=== PATIENT | female | born 1940 | race Caucasian/White ===

== ENCOUNTER 2016-11-02 14:05 | Inpatient (IN) ==
[2016-11-02] MEDS ORDERED: NS 1,000 ML IV PRN (14:39)
[2016-11-02] MEDS ORDERED: NS 500 ML IV ONE (14:40)
[2016-11-02] MEDS ORDERED: HEPARIN ONE (15:22)
--- NOTE | 2016-11-02 15:27 | PROVIDER DOCUMENTATION ---
HPI-Abdominal Pain/GI Problem - General Chief Complaint: GI Bleed Stated Complaint: GI BLEED Time Seen by Provider: 11/02/16 14:31 Source: patient, family Allergies/Adverse Reactions: Patient Allergies Allergy/AdvReac Type Severity Reaction Status Date / Time codeine Allergy Unknown Verified 11/02/16 15:15 meperidine HCl * Allergy VOMITING Verified 11/02/16 15:15 [From Demerol] Penicillins Allergy Unknown Verified 11/02/16 15:15 Home Medications: Home Medication List Medication Instructions Recorded Confirmed Last Taken Type Clonazepam 0.5 tab PO BID 04/17/15 10/27/16 10/27/16 09:00 History Digoxin [Digox] 125 mcg PO DAILY 04/17/15 10/27/16 10/27/16 09:00 History Dorzolamide HCl/Timolol Maleat 1 drop BOTH EYES BID 04/17/15 10/27/16 10/27/16 09:00 History [Cosopt Eye Drops] Paroxetine HCl 10 mg PO BID 04/17/15 10/27/16 10/27/16 09:00 History Propranolol HCl [Propranolol HCl 160 mg PO HS 04/17/15 10/27/16 10/26/16 21:00 History ER] Bimatoprost 0.01% Oph Solution 1 drop BOTH EYES HS #0 bottle 06/25/16 10/27/16 10/26/16 21:00 Rx [Lumigan 0.01% Oph Solution] Ondansetron [Zofran Odt] 4 mg PO Q6H PRN PRN #20 tab.rapdis 07/09/16 10/27/16 16:00 Rx Acetaminophen [Tylenol] 650 mg PO Q6H PRN PRN #0 tablet 08/20/16 10/27/16 Unknown Rx Dronabinol [Marinol] 2.5 mg PO HS #0 capsule 08/20/16 10/27/16 10/26/16 21:00 Rx Methocarbamol [Robaxin] 500 mg PO TID PRN PRN #0 tablet 08/20/16 10/27/16 Unknown Rx Sennosides [Senokot] 1 each PO DAILY PRN PRN 10/27/16 10/27/16 Unknown History - History of Present Illness-ABD Nature of Presenting Problems: patient is a 76 y/o F that presents to the ER with weakness, vomiting and diarrhea, and bleeding from rectum, nasal area, and mouth. Patient has has the vomiting and diarrhea for weeks. patient is on chemo for pancreatic cancer with spots to liver. She was sent here from 's office for admission and GI consult. Quality of Pain: reports: none Severity in ED: reports: moderate Onset/Duration: reports: unsure Timing: reports: still present, constant Activities at Onset: reports: none Modifying Factors: improves with: nothing Associated Symptoms: reports: diarrhea, fatigue, malaise, vomiting, weakness. denies: back/neck pain, chest pain, fever/chills, genitourinary problems, nausea , rash Similar Symptoms Previously?: No Recently seen or treated by another doctor?: Yes Review of Systems - Adult - REVIEW OF SYSTEMS - ADULT Constitutional: reports: fatique. denies: chills, fever Eyes: denies: blurred vision, double vision Ears, Nose, Mouth & Throat: denies: ear pain, hearing loss, sinus problem, throat pain, throat swelling Cardiovascular: denies: chest pain, palpitations, syncope Respiratory: denies: cough, dyspnea on exertion, shortness of breath, wheezing Gastrointestinal: reports: diarrhea, nausea, rectal bleeding, vomiting. denies : abdominal pain, hematemesis Genitourinary: reports: no symptoms reported Musculoskeletal: reports: muscle weakness. denies: back pain, joint pain, neck pain Integumentary: reports: no symptoms reported Neurological: denies: dizziness/vertigo, headache/migraines, seizure Psychiatric: reports: no symptoms reported Endocrine: reports: no symptoms reported Hematologic/Lymphatic: reports: no symptoms reported Allergic/Immunologic: reports: no symptoms reported All Other Systems: Reviewed and Negative Past History - Adult - PAST MEDICAL HISTORY-ADULT Review of Records: reports: Old Records Reviewed, Nursing Assessment Review, Medications Reviewed Cardiovascular: reports: A-Fib, HTN Gastrointestinal: reports: cancer (pancreatic) Genitourinary: reports: other (one kidney) Endocrine/Immune: reports: Diabetes - PRIOR SURGERIES/PROCEDURES Surgical/Procedure History: reports: hysterectomy, orthopedic (extremity), other (one kidney) - IMMUNIZATION STATUS Childhood Immunizations: See Nurse Assessment Flu Vaccine: See Nurse Assessment - FAMILY HISTORY Family History: reviewed, not pertinent - SOCIAL HISTORY Living Situation: family Physical Exam-General - PHYSICAL EXAM-ADULT Initial Vital Signs Reviewed: Yes - CONSTITUTIONAL General Appearance: alert, mild distress, other (ill appearing) - EYES Eyes: PERRL/EOMI, pink conjunctivae - HEAD, EARS, NOSE, MOUTH & THROAT HENMT: normocephalic/atraumatic, moist mucous membranes, normal ENT inspection - NECK Neck: full range of motion, normal inspection. negative: lymphadenopathy - RESPIRATORY Respiratory: no respiratory distress, no accessory muscle use, decreased breath sounds (at right base) - CARDIOVASCULAR Cardiovascular: regular rate, rhythm, no edema, no murmur - GASTROINTESTINAL (ABDOMEN) Abdominal Exam: normal bowel sounds, non tender, soft - MUSCULOSKELETAL Extremity: pelvis stable, pedal edema (trace) - SKIN Integumentary: pallor, other (port noted in upper chest). negative: cyanosis - NEUROLOGIC Neurologic: grossly normal, no motor/sensory deficits - PSYCHIATRIC Psych/Mental Status: normal mood/affect, normal thought content, normal thought process, oriented x 3 Progress - PLAN OF CARE/RESULTS Progress/Plan/Lab Results: plan of care-labs, cxr, type and screen Vital Signs Temp Pulse Resp BP Pulse Ox 11/02/16 14:23 98.4 F 65 16 99/43 100 codeine Allergy (Verified 11/02/16 15:15) Unknown meperidine HCl * [From Demerol] Allergy (Verified 11/02/16 15:15) VOMITING Penicillins Allergy (Verified 11/02/16 15:15) Unknown Clonazepam 0.5 tab PO BID 04/17/15 Digoxin [Digox] 125 mcg PO DAILY 04/17/15 Dorzolamide HCl/Timolol Maleat [Cosopt Eye Drops] 1 drop BOTH EYES BID 04/17/15 Paroxetine HCl 10 mg PO BID 04/17/15 Propranolol HCl [Propranolol HCl ER] 160 mg PO HS 04/17/15 Bimatoprost 0.01% Oph Solution [Lumigan 0.01% Oph Solution] 1 drop BOTH EYES HS #0 bottle 06/25/16 Ondansetron [Zofran Odt] 4 mg PO Q6H PRN PRN #20 tab.rapdis 07/09/16 Acetaminophen [Tylenol] 650 mg PO Q6H PRN PRN #0 tablet 08/20/16 Dronabinol [Marinol] 2.5 mg PO HS #0 capsule 08/20/16 Methocarbamol [Robaxin] 500 mg PO TID PRN PRN #0 tablet 08/20/16 Sennosides [Senokot] 1 each PO DAILY PRN PRN 10/27/16 Orders Category Date Time Status Isolation [Isolation Precautions Setup] NOW Care 11/02/16 14:39 Active Saline Loc DIRECTED Care 11/02/16 14:39 Active Transfuse .Give-Transfuse Care 11/02/16 14:40 Active cxr [CHEST-1 VIEW] [RAD] Stat Exams 11/02/16 14:44 Draft CBC WITH ELECTRONIC DIFF [HEME] Stat Lab 11/02/16 15:43 Ordered COMPREHENSIVE METABOLIC PANEL [CHEM] Stat Lab 11/02/16 15:43 Ordered OCCULT BLOOD NON-FECES Stat Lab 11/02/16 14:39 Uncollected OCCULT BLOOD SCREENING [STOOL] Stat Lab 11/02/16 14:39 Uncollected PHERESIS PLATELETS [BBK] Stat Lab 11/02/16 15:43 Ordered PRBC [LRPC (RED CELLS)] [BBK] Stat Lab 11/02/16 15:43 Ordered PROTIME WITH INR [COAG] Stat Lab 11/02/16 15:43 Ordered PTT [COAG] Stat Lab 11/02/16 15:43 Ordered TYPE & SCREEN [BBK] Stat Lab 11/02/16 15:43 Ordered 0.9% Sodium Chloride Inj [Ns] 1,000 ml Med 11/02/16 14:39 Active IV 125 mls/hr 0.9% Sodium Chloride Inj [Ns] 500 ml Med 11/02/16 14:40 Discontinued IV As Directed Heparin Med 11/02/16 15:22 Discontinued 500 unit .ROUTE .STK-MED ONE - XRAY 1 XRAY Study: Chest Impression: Normal XRAY Interpretation: Negative - CONSULTS/PCP/HOSPITALIST Notification #1 *Consult/PCP/Hospitalist*: Dr.Scott Hobson Time Discussed: 15:49 Consult Disposition: Admit Departure - Departure Time of Disposition Order: 15:45 DIAGNOSIS: Thrombocytopenia Anemia Qualifiers: Anemia type: other cause Other causes of anemia: other cause, not classified Qualified Code(s): D64.89 - Other specified anemias Neutropenia Qualifiers: Neutropenia type: secondary to cancer chemotherapy Qualified Code(s): D70.1 - Agranulocytosis secondary to cancer chemotherapy Pancreatic cancer Qualifiers: Pancreatic malignancy location: other parts of pancreas Qualified Code(s): C25.7 - Malignant neoplasm of other parts of pancreas Disposition: ADMITTED INPATIENT 09 Certified Medical Emergency: Emergent Condition: Stable Attestation - Scribe Verification/Attestation Scribe:: Chucho Friend Acting as Scribe for:: Javi Claudio Scribe documention review:: This chart was documented by a scribe and accurately reflects the service the provider performed and the decisions made by the provider. Physician Attestation - Physician Attestation I, the provider, attest to the following statement:: Javi Claudio Physician documentation Attestation:: This documentation recorded by the scribe accurately reflects the service I personally performed and the decisions made by me.
--- NOTE | 2016-11-02 15:37 | Diag Imaging Result Document ---
PROCEDURE NAME: CHEST-1 VIEW - 11/02/2016 PORTABLE CHEST: COMPARISON: 08/12/2016. FINDINGS: The right sided PICC line has been removed and now there is a right sided Port A Catheter. No pneumothorax. The heart is not enlarged. The vessels are not distended. No pneumonia. No pleural effusions identified. IMPRESSION: Negative chest.
[2016-11-02 16:12] LABS: INR 1.37; PROTIME 14.6 Seconds (9.2-11.7)
[2016-11-02 16:18] LABS: PTT 44.3 Seconds (22.0-36.0)
[2016-11-02 16:45] LABS: HEMOGLOBIN 4.5 g/dL (12.0-16.0)
[2016-11-02 16:46] LABS: BASO% 0.6 % (0.0-0.8); EOS# 0.02 X1000 (0.0-0.7); EOS% 1.2 % (0.0-10.0); HEMATOCRIT 13.7 % (37.0-47.0); IMM GRAN# 0.03 X1000 (0.0-0.04); IMM GRAN% 1.8 % (0.0-0.5); LYMPH# 0.49 X1000 (1.2-3.4); MANUAL DIFF NEEDED? YES; MCH 31.3 PG (27-31); MCHC 32.8 g/dL (33-37); MCV 95.1 FL (81-99); MONO# 0.21 X1000 (0.11-0.59); MONO% 12.4 % (1.7-9.3); MPV 12.8 FL (7.4-10.4); PLT 53 X1000 (130-400); RBC 1.44 XMIL (4.2-5.4)
[2016-11-02 16:53] LABS: AGAP 11; ALBUMIN 2.5 g/dL (3.5-5.0); ALKALINE PHOSPHATASE 149 U/L (32-104); BUN 5 mg/dL (8-22); CALCIUM 8.7 mg/dL (8.8-10.2); CHLORIDE 95 mmol/L (98-107); COSMO 263; GOT 27 U/L (10-30); GPT 15 U/L (10-36); POTASSIUM 2.8 mmol/L (3.5-5.1); SODIUM 132 mmol/L (136-145); TCO2 26 mmol/L (25-35); TOTAL BILIRUBIN 1.31 mg/dL (0.20-1.00); TOTAL PROTEIN 5.6 g/dL (6.3-8.3)
[2016-11-02 17:40] LABS: EOS 4 % (1-10); LYMPHS 32 % (21-51); MONO 12 % (1-9)
[2016-11-02 17:41] LABS: HYPOCHROM 2+; LARGE PLATELETS OCCASIONAL; POLYCHROM OCCASIONAL
[2016-11-02] MEDS ORDERED: ATROVENT 0.03% NASAL SPRAY NAS PRN (21:34)
[2016-11-02] MEDS ORDERED: POTASSIUM CHLORIDE 40 MEQ/SWI 100 ML IV ONE (21:34)
[2016-11-02] MEDS ORDERED: TYLENOL PO PRN (21:34)
[2016-11-02] MEDS ORDERED: LOMOTIL PO PRN (21:34)
[2016-11-02] MEDS ORDERED: PROPRANOLOL HCL 160 MG PO SCH (21:34)
[2016-11-02] MEDS: NS 1,000 ML IV SCH (22:57)
[2016-11-03] MEDS: COSOPT OPHTH SOLN BOTH EYES SCH ×3 (01:11→20:17)
[2016-11-03] MEDS: LUMIGAN 0.01% OPH SOLUTION BOTH EYES SCH ×2 (01:12→20:17)
[2016-11-03] MEDS: MARINOL PO SCH ×2 (01:13→20:16)
[2016-11-03] MEDS: PAXIL PO SCH ×3 (01:13→20:16)
[2016-11-03] MEDS: KLONOPIN PO SCH ×3 (01:13→20:16)
[2016-11-03] MEDS: PERCOCET-5 PO PRN (01:13)
[2016-11-03] MEDS: INDERAL LA PO SCH ×2 (01:14→20:16)
[2016-11-03] MEDS: NS 1,000 ML IV SCH ×3 (01:29→16:21)
[2016-11-03 02:31] LABS: HEMATOCRIT 23.7 % (37.0-47.0)
--- NOTE | 2016-11-03 03:26 | HISTORY AND PHYSICAL ---
PRIMARY CARE PHYSICIAN: Dr. Mario Hobson. CHIEF COMPLAINT: Shortness of breath, anemia. HISTORY OF PRESENT ILLNESS: A 76-year-old, white female with a very complicated past medical history, presents for evaluation of above-mentioned symptoms. Current history of present illness began last Tuesday. At that time, patient was provided chemotherapy for her underlying pancreatic cancer. Laboratory data was drawn and patient was scheduled to have a transfusion of a unit of packed red blood cells on Tuesday. The patient tolerated this procedure well; however, soon thereafter, began to feel poorly. The patient experienced increasing diarrhea with associated nausea. She has experienced an increase in fatigue. She intermittently has experienced cough and congestion precipitating a vomiting episode. She has had chills but denies fevers. She denies dysuria, hematuria, and pyuria. Because of progression of patient's overall symptoms, patient presented to Dr. Parrish's office. Patient was found to be pancytopenic. She was referred to me to the emergency department for further evaluation and management. Of note, while patient has had significant diarrhea, patient's family denies any melena or hematochezia. There has been no evidence of blood loss otherwise. PAST MEDICAL HISTORY: 1. Congenital malformation of the right kidney, status post nephrectomy in the . 2. Multiple actinic keratoses. 3. Anxiety. 4. Asthma. 5. Breast cancer, status post left mastectomy. 6. Bilateral cataract removal. 7. Cholelithiasis, status post laparoscopic cholecystectomy in 2011. 8. Traumatic left ankle fracture in 2009. 9. Type 2 diabetes. 10. Hypertension. 11. Hypertriglyceridemia. 12. Glaucoma. 13. Hyperlipidemia. 14. Low HDL. 15. Long-term anticoagulation secondary to atrial fibrillation. 16. Low back pain, status post surgical intervention in the . 17. Obstructive sleep apnea, untreated. 18. Palpitations. 19. Atrial fibrillation diagnosed in April of 2010, followed by Dr. Shah. She is rate controlled and anticoagulated. 20. History of colonic polyps. 21. Postmenopausal state. 22. Ptosis of bilateral eyelids. 23. History of right shoulder replacement. 24. Multiple actinic keratoses and seborrheic keratoses. 25. Uterine malignancy, status post PRAMOD/BSO in 2003. CURRENT MEDICATIONS: 1. Clonazepam 0.5 mg 1/2 tablet twice daily. 2. Cosopt eyedrops 1 drop in each eye twice daily. 3. Digoxin 125 mcg daily. 4. Inderal LA 160 mg at bedtime. 5. Ipratropium bromide nasal spray, 2 sprays in each nostril every 8 hours as needed. 6. Lumigan eyedrops at bedtime. 7. Paroxetine 20 mg 1/2 tablet twice daily. 8. Percocet 5/325 as needed. 9. Phenergan 25 mg every 6 hours as needed. 10. Xarelto 10 mg at bedtime. 11. Marinol 2.5 mg at bedtime. ALLERGIES: Patient states she is allergic to codeine, Demerol, penicillin, Singulair, and tramadol therapy. SOCIAL HISTORY: Patient is a former smoker. She smoked 1/4 pack per day for 1 year. She stopped in 1968. She denies alcohol or illicit drug use. She works at the [employer]. She enjoys shopping. She does not exercise routinely. FAMILY HISTORY: Patient's father passed at age 86 secondary to complications of pneumonia. He had a history of lung cancer. Patient's mother passed at age 83 secondary to complications of pneumonia. She had a history of multiple TIAs, hypertension, and diabetes. REVIEW OF SYSTEMS: A 12 point review of systems was performed. Pertinent positives and negatives are noted in the history of present illness. PHYSICAL EXAMINATION: VITAL SIGNS: Temperature 98.8 degrees, heart rate 65, respirations 19, blood pressure is 124/44. GENERAL: Chronically ill appearing, no acute distress. HEENT: Normocephalic, atraumatic. Pupils equal, round, and reactive to light. Extraocular muscles are intact. Sclerae anicteric. Pale conjunctivae. Oral and nasopharynx clear without exudate. NECK: Supple. No lymphadenopathy. No thyromegaly. No bruits auscultated. CARDIOVASCULAR: Irregularly irregular. No significant murmurs, rubs, or gallops. PULMONARY: Clear to auscultation bilaterally. ABDOMEN: Soft, nontender, nondistended. Positive bowel sounds. EXTREMITIES: Moves all extremities well. No significant clubbing, cyanosis, or edema. NEUROLOGIC: Cranial nerves 2 through 12 are grossly intact. Motor and sensory grossly intact. PSYCHOLOGIC: Examination is appropriate. LABORATORY DATA: White blood cell count 1.69, hemoglobin 4.5, hematocrit 13.7, platelet count is 53,000. PT 14.6, INR is 1.37, PTT is 44.3. Sodium 132, potassium 2.8, chloride 95, bicarb 26, BUN 5, creatinine 0.6, glucose 120, calcium 8.7. Total bilirubin 1.31, total protein 5.6, albumin 2.5, alkaline phosphatase 149, AST 27, ALT 15. ASSESSMENT AND PLAN: A 76-year-old, white female with a very complicated past medical history including a fairly recent diagnosis of pancreatic cancer, presents for evaluation of profound weakness with associated pancytopenia. Initially, concern was raised that the patient may indeed be losing blood through the gastrointestinal tract. In the setting of significant loose stools, this certainly was a consideration. Patient's Hemoccult, however, is negative. With pancytopenia, one would suspect a bone marrow suppression secondary to chemotherapy rather than true blood loss. The patient will be admitted to the hospital and fully evaluated. 1. Admit to general medicine. 2. Pancytopenia-patient has a leukocytopenia, anemia, and thrombocytopenia. The patient will be transfused one unit of platelets as ordered by the emergency room. We will plan to transfuse packed red blood cells until hematocrit reaches greater than 24. At this point, the patient's white blood cell count is low with an absolute neutrophil count less than 1000. The patient will be placed in a private room. We will practice precautions. At this point, she does not manifest evidence of an underlying infection. 3. Anticoagulation-with the patient's blood levels being as low as they are, Xarelto has been held. We will remain aware. 4. Hypokalemia-we will replace the patient's potassium with intravenous potassium chloride. 5. Profound weakness. 6. Pancreatic cancer-as above, patient's last chemotherapy was on Tuesday. We will consult Dr. Parrish and determine if further intervention is warranted. 7. Loose stools-patient has had a significant amount of loose stools recently. We will check stool studies. We will consult Dr. Kumar. 8. Atrial fibrillation-at this point, the risk of anticoagulation outweighs the benefits. We will remain aware. 9. Hypertension/hyperlipidemia-we will continue patient's home medications. 10. Profound weakness-once able, we will initiate physical therapy. 11. Fluid, electrolytes, nutrition. We will monitor electrolytes. Normal saline at 75 mL an hour. Clear liquid diet. 12. Prophylaxis. Patient will be placed on sequential compression devices.
[2016-11-03] MEDS ORDERED: ZOFRAN IV PRN (03:33)
[2016-11-03] MEDS: LANOXIN PO SCH (10:04)
[2016-11-03 10:37] LABS: HEMATOCRIT 25.2 % (37.0-47.0); HEMOGLOBIN 8.6 g/dL (12.0-16.0)
[2016-11-03 11:05] LABS: AGAP 10; ALBUMIN 2.1 g/dL (3.5-5.0); ALKALINE PHOSPHATASE 117 U/L (32-104); BUN 4 mg/dL (8-22); CALCIUM 7.7 mg/dL (8.8-10.2); CHLORIDE 103 mmol/L (98-107); COSMO 272; GOT 22 U/L (10-30); GPT 12 U/L (10-36); POTASSIUM 2.9 mmol/L (3.5-5.1); SODIUM 138 mmol/L (136-145); TCO2 25 mmol/L (25-35); TOTAL BILIRUBIN 1.46 mg/dL (0.20-1.00); TOTAL PROTEIN 4.7 g/dL (6.3-8.3)
[2016-11-03] MEDS ORDERED: KLOR-CON PO ONE (11:16)
[2016-11-03 12:14] LABS: DIGOXIN 0.5 ng/mL (0.9-2.0)
[2016-11-03 13:59] LABS: BASO% 0.6 % (0.0-0.8); EOS# 0.03 X1000 (0.0-0.7); EOS% 1.8 % (0.0-10.0); HEMATOCRIT 26.9 % (37.0-47.0); HEMOGLOBIN 9.3 g/dL (12.0-16.0); IMM GRAN# 0.04 X1000 (0.0-0.04); IMM GRAN% 2.4 % (0.0-0.5); LYMPH# 0.41 X1000 (1.2-3.4); LYMPH% 24.7 % (20.5-51.1); MANUAL DIFF NEEDED? YES; MCH 30.8 PG (27-31); MCHC 34.6 g/dL (33-37); MCV 89.1 FL (81-99); MONO# 0.34 X1000 (0.11-0.59); MONO% 20.5 % (1.7-9.3); MPV 12.2 FL (7.4-10.4); PLT 67 X1000 (130-400); RBC 3.02 XMIL (4.2-5.4)
[2016-11-03 14:24] LABS: BANDS 4 % (0-1); HYPOCHROM 2+; LYMPHS 24 % (21-51); MONO 16 % (1-9); NRBC 2 % (0-0); POLYCHROM OCCASIONAL
[2016-11-03 14:25] LABS: LARGE PLATELETS OCCASIONAL
--- NOTE | 2016-11-03 14:57 | CONSULTATION ---
DATE OF CONSULTATION: 11/03/2016 REFERRING PHYSICIAN: Dr. Mario Hobson. REASON FOR REFERRAL: Anemia. History of pancreatic cancer. HISTORY OF PRESENT ILLNESS: This is a 76-year-old, white female, who we have seen in the office on in the past. She was diagnosed with pancreatic cancer and has been following with Dr. Parrish for chemotherapy. She had her last chemotherapy last Tuesday. She did receive packed red blood cells on Tuesday. She was experiencing increased fatigue. She had a cough with some congestion and had an episode of vomiting. No reported fever. No reported dysuria or hematuria. The patient states at times, when she blows her nose, it will be slightly bloody. She had bowel movements and her daughter thought she may have had some blood in the stool. Her son is here with her today and states the last several times he has helped her to the bathroom the stool color was green. She was admitted for further evaluation for pancytopenia. She has also had some diarrhea off and on. PAST MEDICAL HISTORY: Congenital malformation of the right kidney, status post nephrectomy in the . Actinic keratosis, anxiety, asthma, history of breast cancer with left mastectomy, bilateral cataract removal, cholelithiasis in 2011 status post cholecystectomy. Left ankle fracture in 2009. Type 2 diabetes, hypertension, hypertriglyceridemia, glaucoma, hyperlipidemia, history of atrial fibrillation, chronic low back pain, obstructive sleep apnea, right shoulder replacement, uterine malignancy status post abdominal hysterectomy and bilateral salpingo- oophorectomy in 2003. ALLERGIES: 1. Codeine; unknown reaction. 2. Demerol; vomiting. 3. Penicillin; unknown reaction. HOME MEDICATIONS: 1. Senokot 1 daily as needed. 2. Propranolol 160 mg every night. 3. Paroxetine 10 mg twice a day. 4. Zofran 4 mg p.o. every 6 hours as needed. 5. Marinol 2.5 mg every night. 6. Eyedrops twice a day. 7. Digoxin 125 mcg daily. 8. Clonazepam 0.5 twice daily. 9. Lumigen eyedrops. 10. Tylenol 650 every 6 hours as needed. SOCIAL HISTORY: History of tobacco use; quit in the . No reported alcohol use. FAMILY HISTORY: Father from pneumonia. He had history of lung cancer. Her mother passed from pneumonia with history of TIAs, hypertension, and diabetes. REVIEW OF SYSTEMS: Per HPI. PHYSICAL EXAMINATION: VITAL SIGNS: Temperature 98.7 degrees, pulse 63, respirations 18, blood pressure 119/53. GENERAL: The patient is awake and alert in no acute distress. She currently denies complaints. HEENT: Normocephalic, atraumatic. Pupils equal, round, reactive to light. Sclerae nonicteric. CARDIOVASCULAR: Irregular rate and rhythm. History of atrial fibrillation. RESPIRATORY: Lung sounds clear bilaterally. ABDOMEN: Soft, nontender, positive bowel sounds. EXTREMITIES: No lower extremity edema noted. NEUROLOGIC: Cranial nerves 2-12 grossly intact. Patient is awake, alert, oriented to person, place, and time. LABORATORY: Hematology: White count 1.66, hemoglobin 9.3, hematocrit 26.9, MCV 89.1, platelets 67,000. Coagulation ProTime 14.6, INR 1.37, PTT 44.3. Chemistry: Sodium 138, potassium 2.9, chloride 103, CO2 of 25. BUN 4, creatinine 0.5. Glucose 84, calcium 7.7, magnesium 1.3. Total bilirubin 1.46. AST 22, ALT 12. Alkaline phosphatase 117. Total protein 4.7, albumin 2.1. ASSESSMENT AND PLAN: 1. Pancreatic cancer. Currently undergoing chemotherapy. 2. Pancytopenia with severe anemia. She has received 3 units of packed red blood cells and 1 unit of platelets. Her hemoglobin and hematocrit have improved after blood transfusion. 3. Anticoagulation with history of atrial fibrillation. Xarelto is currently on hold. 4. Pancreatic cancer with last chemotherapy on Tuesday. 5. Diarrhea. We will check stool studies. Continue supportive care. Continue to monitor for any active bleeding. Her Hemoccult stool test was negative. Pancytopenia and diarrhea most likely related to chemotherapy. We will wait for stool study results and continue supportive care. We will continue to follow. We will follow up with her in the office once she is discharged. Plans Further plans will be made as needed. I have discussed this case with Dr. Kumar. Thank you for this consultation. Dictated by LEEANNA Jimenez for Marcos Kmuar MD
[2016-11-03 17:45] LABS: HEMATOCRIT 27.5 % (37.0-47.0); HEMOGLOBIN 9.3 g/dL (12.0-16.0)
--- NOTE | 2016-11-03 17:53 | PROGRESS NOTE ---
DATE: 11/03/2016 SUBJECTIVE: This morning, patient states she is feeling better. She does have more energy. She continues to have intermittent loose stools. Her nausea is present, but slightly decreased. She denies fevers, chills, shortness of breath, or chest discomfort. Her p.o. intake remains marginal. She does continue to have some nausea. OBJECTIVE: T-max 98.7 degrees, heart rate 57-70, respirations 12-21, blood pressure 103 to 124 over 39 to 53.General: Chronically ill appearing, no acute distress. Cardiovascular: Regular rate and rhythm. No significant murmurs, rubs, or gallops. Pulmonary: Clear to auscultation bilaterally. Abdomen: Soft, diffusely tender without guarding or rebound. Positive bowel sounds. Extremities: Moves all extremities well. No significant clubbing, cyanosis, or edema. Dermatologic: Evaluation reveals no evidence of rash. LABORATORY DATA: White blood cell count 1.66, hemoglobin 9.3, hematocrit 26.9, platelet count 67,000. Sodium 138, potassium 2.9, chloride 103, bicarb 25, BUN 4, creatinine 0.5 and glucose is 84, calcium 7.7, magnesium 1.3, total bilirubin 1.46, total protein 4.7, albumin 2.1. Alkaline phosphatase 117. AST 22, ALT 12. Digoxin level 0.5. ASSESSMENT AND PLAN: 1. Pancytopenia - I continue to expect this likely is secondary to chemotherapy. The patient was initially Hemoccult negative. With packed red blood cell transfusions, patient has achieved improvement in her hemoglobin and hematocrit. We will continue to follow serial examinations. 2. Anticoagulation - at this point, the risk of continuing Xarelto outweighs the benefit. We will continue to place this on hold. We will discuss this with Dr. Parrish and determine when resuming this is appropriate. 3. Hypokalemia - patient's potassium increased only slightly with 40 mEq of potassium chloride. We will repeat potassium supplementation. We will replete magnesium. We will follow this. 4. Profound weakness - we will start physical therapy today. This likely is multifactorial. 5. Pancreatic cancer - we will hold patient's chemotherapy for now. We will consult Dr. Parrish. 6. Loose stools - I suspect this is chemotherapy related. I appreciate Dr. Kumar's consultation. We will follow up stool studies and determine if further intervention is warranted. 7. Atrial fibrillation - patient appears to be in sinus rhythm today. We will continue her current medical regimen. As described above, we will hold Xarelto for now. 8. Disposition - at this point, patient continues to require nursing home care in the hospital setting. We will plan discharge home once appropriate.
[2016-11-03] MEDS ORDERED: MAGNESIUM SULFATE 1 GM/D5W 100 ML IV ONE ×2 (18:00→22:02)
[2016-11-03] MEDS ORDERED: POTASSIUM CHLORIDE 40 MEQ/SWI 100 ML IV ONE (22:02)
[2016-11-03] MEDS ORDERED: FLAGYL PO SCH (22:15)
[2016-11-03] MEDS: QUESTRAN LIGHT PO SCH (22:37)
[2016-11-04 07:10] LABS: BASO% 1.5 % (0.0-0.8); EOS# 0.01 X1000 (0.0-0.7); EOS% 0.5 % (0.0-10.0); HEMATOCRIT 27.9 % (37.0-47.0); HEMOGLOBIN 9.5 g/dL (12.0-16.0); IMM GRAN# 0.09 X1000 (0.0-0.04); IMM GRAN% 4.4 % (0.0-0.5); LYMPH% 24.3 % (20.5-51.1); MANUAL DIFF NEEDED? YES; MCH 30.6 PG (27-31); MCHC 34.1 g/dL (33-37); MONO# 0.49 X1000 (0.11-0.59); MONO% 23.8 % (1.7-9.3); NEUT% 45.5 % (42.2-75.2); PLT 76 X1000 (130-400)
[2016-11-04 07:22] LABS: AGAP 11; ALBUMIN 2.2 g/dL (3.5-5.0); ALKALINE PHOSPHATASE 130 U/L (32-104); BUN 3 mg/dL (8-22); CALCIUM 7.1 mg/dL (8.8-10.2); CHLORIDE 101 mmol/L (98-107); COSMO 266; GOT 22 U/L (10-30); GPT 11 U/L (10-36); MAGNESIUM 1.4 mg/dL (1.5-2.7); SODIUM 135 mmol/L (136-145); TCO2 23 mmol/L (25-35); TOTAL BILIRUBIN 1.44 mg/dL (0.20-1.00); TOTAL PROTEIN 5.1 g/dL (6.3-8.3)
[2016-11-04 07:31] LABS: EOS 2 % (1-10); LYMPHS 26 % (21-51); MONO 2 % (1-9); POTASSIUM 4.6 mmol/L (3.5-5.1)
--- NOTE | 2016-11-04 08:35 | CONSULTATION ---
DATE OF CONSULTATION: 11/03/2016 CHIEF COMPLAINT: Pancytopenia. PRIMARY CARE PHYSICIAN: Mario Hobson MD ADMITTING PHYSICIAN: Mario Hobson MD REQUESTING PHYSICIAN: Mario Hobson MD We appreciate this consultation. HISTORY OF PRESENT ILLNESS: Ms. Eduardo is a very pleasant 76-year-old female with a history of pancreatic cancer being treated with Abraxane and Gemzar. She is status post cycle 3 day 8 of chemotherapy on October 26. Her next scheduled dose is November 09. The patient presented to Dr. Parrish's clinic secondary to profound diarrhea with reports of black and maroon stool. The patient was referred to [facility] Emergency Department secondary to pancytopenia and persistent diarrhea that was not relieved with Lomotil and Imodium. Upon evaluation, the patient was found to have a hemoglobin of 4.5 with a white blood cell count of 1.69, platelet count of 53,000, and an ANC of 0.93. The patient was admitted for workup. Presently, the patient is status post 3 units of packed red blood cells with a hemoglobin of 8. She reports that she feels much improved. The diarrhea has improved somewhat at this time on Lomotil and Imodium. Clostridium difficile toxin is currently pending. PAST MEDICAL HISTORY: 1. 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 2. Breast cancer, status post left mastectomy. 3. Diabetes mellitus type 2. 4. Hypertension. 5. Hyperlipidemia. 6. Atrial fibrillation. 7. Obstructive sleep apnea. 8. Pancreatic cancer diagnosed in 2016. PAST SURGICAL HISTORY: 1. Left mastectomy. 2. Right nephrectomy. 3. Cholecystectomy. 4. Back surgery. 5. Total abdominal hysterectomy. 6. Right shoulder replacement. SOCIAL HISTORY: The patient has a history of smoking cigarettes. She quit smoking in 1968. She denies any alcohol or illicit drug use. FAMILY HISTORY: Significant for lung cancer in the patient's father. MEDICATIONS ON ADMISSION: 1. Clonazepam. 2. Cosopt. 3. Digoxin. 4. Inderal. 5. Ipratropium bromide nasal spray. 6. Lumigan eye drops. 7. Paroxetine. 8. Percocet. 9. Phenergan. 10. Xarelto. 11. Marinol. ALLERGIES: To codeine, Demerol, penicillin, Singulair, and tramadol. REVIEW OF SYSTEMS: A 14-point review of systems was obtained and is negative except for as mentioned in the HPI. PHYSICAL EXAMINATION: General: Ms. Eduardo is a pleasant 76-year-old female, lying supine in bed, in no immediate distress. Vital Signs: Temperature 98.7 degrees, blood pressure 119/53, heart rate 63, respirations are 18, and O2 saturation is 94% on room air. HEENT: Normocephalic, atraumatic. Mucous membranes are pale and somewhat dry. Sclerae are slightly icteric. Extraocular movements intact. Neck: Supple. Lungs: Clear to auscultation bilaterally. Chest expansion is equal bilaterally. Cardiovascular: S1 and S2 are heard without murmur, rub, or gallop. Abdomen: Soft, nondistended, somewhat tender throughout. Bowel sounds are positive in all quadrants. No rebound or guarding is noted. Extremities: Without clubbing, cyanosis, or edema. Dermatologic: No rashes, bruises, or lesions. Neurologic: The patient is awake, alert and oriented x3. She has no focal deficit at this time. LABORATORY DATA: Sodium 132, potassium 2.8, chloride 95, CO2 is 26, BUN 5, creatinine 0.6, glucose 128. Hemoglobin is 4.5, hematocrit 13.7, white blood cell count is 1.69, platelets 53,000, ANC is 0.93. INR is 1.37. Chest x-ray is negative for any acute illness. ASSESSMENT AND PLAN: 1. Pancreatic cancer, status post cycle 3 day 8 of Abraxane and Gemzar on October 26. Chemotherapy will be held until the patient's acute illness has passed. 2. Anemia, which is profound, questionably related to gastrointestinal bleed. The patient does report that she has had maroon and black tarry stool. Fecal occult blood test is currently pending. Dr. Kumar is following. 3. Atrial fibrillation, currently on chronic Xarelto therapy, which is being held secondary to questionable gastrointestinal bleed. 4. Deconditioning secondary to pancreatic cancer. 5. We will follow along with you and make further recommendations pending outcomes. The above reflects the history, examination, assessment and plan of Dr. Parrish. Dictated by LEEANNA Corbett for Kaushal Parrish MD
[2016-11-04] MEDS: NS 1,000 ML IV SCH ×2 (08:53→15:40)
[2016-11-04] MEDS: LANOXIN PO SCH (08:54)
[2016-11-04] MEDS: KLONOPIN PO SCH ×2 (08:54→21:35)
[2016-11-04] MEDS: FLAGYL PO SCH ×3 (08:55→21:35)
[2016-11-04] MEDS: CULTURELLE PO SCH (08:55)
[2016-11-04] MEDS: PAXIL PO SCH ×2 (08:55→21:35)
[2016-11-04] MEDS: QUESTRAN LIGHT PO SCH (08:55)
[2016-11-04] MEDS: COSOPT OPHTH SOLN BOTH EYES SCH ×2 (08:55→21:37)
[2016-11-04] MEDS ORDERED: CALMOSEPTINE OINTMENT TOP PRN (14:32)
[2016-11-04] MEDS: MARINOL PO SCH (21:35)
[2016-11-04] MEDS: INDERAL LA PO SCH (21:35)
[2016-11-04] MEDS: LUMIGAN 0.01% OPH SOLUTION BOTH EYES SCH (21:36)
--- NOTE | 2016-11-05 04:03 | PROGRESS NOTE ---
DATE: 11/04/2016 SUBJECTIVE: Patient continues to very slowly improve. Her energy level remains very low. Her loose stools have improved, but not resolved. She denies fevers, chills, shortness of breath, or chest discomfort. Her p.o. intake remains marginal. OBJECTIVE: Vital Signs: T-max 98.8, heart rate, 54-63, respirations 18-20, blood pressure 87 to 123 over 35 to 58. General: Chronically ill appearing, no acute distress. Cardiovascular: Irregularly irregular. No significant murmurs, rubs, or gallops. Pulmonary: Clear to auscultation anteriorly. Abdomen: Soft, diffusely tender, nondistended. Positive bowel sounds. Extremities: Moves all extremities well. No significant clubbing, cyanosis, or edema. Dermatologic: Evaluation reveals no evidence of rash. LABORATORY DATA: White blood cell count 2.06, hemoglobin 9.5, hematocrit 27.9, platelet count 76,000. Sodium 135, potassium 4.6, chloride 101, bicarb 23, BUN 3, creatinine 0.6, glucose 91, calcium 7.1, magnesium 1.4, total bilirubin 1.44, total protein 5.1, albumin 2.2, alkaline phosphatase 130, AST 22, ALT 11. ASSESSMENT AND PLAN: 1. Pancytopenia - The patient is status post transfusions of packed red blood cells. Hemoglobin and hematocrit remain stable. In the setting of pancytopenia with gradual improvement since admission, I suspect chemotherapy is the likely culprit. We will continue supportive care. 2. Anticoagulation - At present time, the risk of Xarelto outweighs the benefits. We will continue to hold and consider resuming this after discussing with Dr. Parrish. 3. Hypokalemia - Patient has achieved improvement with potassium supplementation. 4. Profound weakness - Physical therapy was initiated yesterday. We will continue to encourage activity. 5. Pancreatic cancer - Patient's chemotherapy has been held. We will follow along with Dr. Parrish. 6. Clostridium difficile colitis - This is a new diagnosis. Patient was started on Flagyl therapy. Loose stools are improving. 7. Atrial fibrillation - We will remain aware. At present time, she is rate controlled. Anticoagulation has been held as above. 8. Disposition - At this point, patient continues to require [facility] care in the hospital setting. The patient will be discharged home once appropriate.
[2016-11-05] MEDS: FLAGYL PO SCH ×3 (05:38→22:18)
[2016-11-05 06:47] LABS: BASO% 1.5 % (0.0-0.8); EOS# 0.03 X1000 (0.0-0.7); EOS% 1.1 % (0.0-10.0); HEMATOCRIT 28.5 % (37.0-47.0); HEMOGLOBIN 9.5 g/dL (12.0-16.0); IMM GRAN# 0.17 X1000 (0.0-0.04); IMM GRAN% 6.3 % (0.0-0.5); LYMPH# 0.55 X1000 (1.2-3.4); LYMPH% 20.3 % (20.5-51.1); MANUAL DIFF NEEDED? YES; MCH 30.4 PG (27-31); MCHC 33.3 g/dL (33-37); MCV 91.1 FL (81-99); MONO# 0.64 X1000 (0.11-0.59); MONO% 23.6 % (1.7-9.3); MPV 11.5 FL (7.4-10.4); NEUT% 47.2 % (42.2-75.2); PLT 118 X1000 (130-400); RBC 3.13 XMIL (4.2-5.4)
[2016-11-05 07:09] LABS: AGAP 12; ALKALINE PHOSPHATASE 118 U/L (32-104); BUN 3 mg/dL (8-22); CHLORIDE 105 mmol/L (98-107); COSMO 273; GOT 19 U/L (10-30); GPT 9 U/L (10-36); MAGNESIUM 1.7 mg/dL (1.5-2.7); POTASSIUM 3.7 mmol/L (3.5-5.1); SODIUM 139 mmol/L (136-145); TCO2 22 mmol/L (25-35); TOTAL BILIRUBIN 1.19 mg/dL (0.20-1.00); TOTAL PROTEIN 4.7 g/dL (6.3-8.3)
[2016-11-05 07:16] LABS: EOS 1 % (1-10); LYMPHS 27 % (21-51); MONO 18 % (1-9); NRBC 1 % (0-0)
[2016-11-05] MEDS: NS 1,000 ML IV SCH (07:55)
[2016-11-05] MEDS: QUESTRAN LIGHT PO SCH (08:34)
[2016-11-05] MEDS: CULTURELLE PO SCH (08:35)
[2016-11-05] MEDS: PAXIL PO SCH ×2 (08:35→22:17)
[2016-11-05] MEDS: KLONOPIN PO SCH ×2 (08:35→22:17)
[2016-11-05] MEDS: LANOXIN PO SCH (08:35)
[2016-11-05] MEDS: COSOPT OPHTH SOLN BOTH EYES SCH (08:35)
--- NOTE | 2016-11-05 13:18 | PROGRESS NOTE ---
DATE: 11/05/2016 SUBJECTIVE: Patient is sleeping. I have talked with her daughter. She states she did get up with physical therapy today. They are working on strength training. OBJECTIVE: Vital Signs: Temperature 99.1 degrees, pulse 62, respirations 18, blood pressure 133/49. LABORATORY: Hematology: White count 2.71, hemoglobin 9.5, hematocrit 28.5, MCV 91.1, platelet 118,000. Chemistry: Sodium 139, potassium 3.7, chloride 105, CO2 of 22. BUN 3, creatinine 0.5, glucose 80. Total bilirubin 1.19. AST 19, ALT 9. No evidence of active bleeding. ASSESSMENT: 1. Pancytopenia. White blood cell count is improving. 2. Pancreatic cancer. Last chemotherapy on 10/26/2016. 3. Diarrhea, improving. 4. Clostridium difficile, on Flagyl. PLAN: Continue supportive care. Continue antibiotics. Continue to monitor hemoglobin and hematocrit which is currently stable. GI will continue to follow. Dr. Sharif is on-call over the weekend. Dictated by LEEANNA Jimenez for Marcos Kumar MD
--- NOTE | 2016-11-05 17:48 | PROGRESS NOTE ---
DATE: 11/05/2016 SUBJECTIVE: Patient's overall condition continues to very slowly improve. The patient's diarrhea is present, but improving with treatment of her underlying Clostridium difficile. The patient's p.o. intake remains marginal. She remains very weak. She is working with Physical Therapy. Patient otherwise denies fevers, chills, shortness of breath, or chest discomfort. OBJECTIVE: Vital Signs: T-max 99.1 degrees, heart rate 54-62, respirations 18-20, blood pressure 87-133/46-58. General: Chronically ill appearing, no acute distress. Cardiovascular: Irregularly irregular. No significant murmurs, rubs, or gallops. Pulmonary: Clear to auscultation bilaterally. Abdomen: Soft, diffusely tender without guarding or rebound. Positive bowel sounds. Extremities: Moves all extremities well. No significant clubbing, cyanosis, or edema. Dermatologic: Evaluation reveals no evidence of rash. LABORATORY DATA: White blood cell count 2.71, hemoglobin 9.5, hematocrit 28.5, platelet count is 118,000. Sodium 139, potassium 3.7, chloride 105, bicarbonate 22, BUN 3, creatinine 0.5, glucose 80, calcium 8.0, magnesium 1.7, total bilirubin 1.19, total protein 4.7, albumin 2.0, alkaline phosphatase 118, AST 19, ALT 9. ASSESSMENT AND PLAN: 1. Pancytopenia - Patient is status post transfusions of packed red blood cells and platelets. The patient's pancytopenia continues to gradually improve suggesting chemotherapy as the likely etiology. We will continue supportive care. 2. Anticoagulation - The risk of Xarelto therapy outweighs the benefits. We will consider resuming Xarelto both therapy after a discussion is held with Dr. Parrish. 3. Hypokalemia - The patient's potassium is acceptable today. We will continue to follow this. 4. Profound weakness - We will continue patient on physical therapy. 5. Pancreatic cancer - Patient's chemotherapy has been held for now. We will defer management to Dr. Parrish. 6. Clostridium difficile colitis - The patient's diarrhea is slowly improving. She is being treated with oral Flagyl therapy. We will follow this closely as well. 7. Atrial fibrillation - We will remain aware. She is rate controlled. As above, anticoagulation has been held. 8. Disposition - At this point, patient continues to require [facility] care in a hospital setting. I anticipate, should patient's condition continue to improve, we will consider discharge to home on Tuesday.
[2016-11-05] MEDS: MARINOL PO SCH (22:17)
[2016-11-05] MEDS: INDERAL LA PO SCH (22:18)
[2016-11-06] MEDS: COSOPT OPHTH SOLN BOTH EYES SCH ×2 (01:02→08:44)
[2016-11-06] MEDS: LUMIGAN 0.01% OPH SOLUTION BOTH EYES SCH (01:02)
[2016-11-06] MEDS: FLAGYL PO SCH ×3 (05:48→21:57)
[2016-11-06 06:34] LABS: AGAP 12; ALKALINE PHOSPHATASE 123 U/L (32-104); BUN 4 mg/dL (8-22); CALCIUM 7.9 mg/dL (8.8-10.2); CHLORIDE 105 mmol/L (98-107); COSMO 271; GOT 20 U/L (10-30); GPT 8 U/L (10-36); POTASSIUM 3.4 mmol/L (3.5-5.1); SODIUM 138 mmol/L (136-145); TCO2 21 mmol/L (25-35); TOTAL BILIRUBIN 1.19 mg/dL (0.20-1.00); TOTAL PROTEIN 4.2 g/dL (6.3-8.3)
[2016-11-06 06:35] LABS: BASO% 0.9 % (0.0-0.8); EOS# 0.01 X1000 (0.0-0.7); EOS% 0.3 % (0.0-10.0); HEMATOCRIT 29.1 % (37.0-47.0); HEMOGLOBIN 9.7 g/dL (12.0-16.0); IMM GRAN% 8.8 % (0.0-0.5); LYMPH% 17.5 % (20.5-51.1); MANUAL DIFF NEEDED? YES; MCH 30.6 PG (27-31); MCHC 33.3 g/dL (33-37); MCV 91.8 FL (81-99); MONO# 0.82 X1000 (0.11-0.59); MPV 11.3 FL (7.4-10.4); NEUT% 48.5 % (42.2-75.2); PLT 164 X1000 (130-400); RBC 3.17 XMIL (4.2-5.4)
[2016-11-06 07:17] LABS: BANDS 10 % (0-1); LARGE PLATELETS 1+; LYMPHS 14 % (21-51); MONO 12 % (1-9)
[2016-11-06] MEDS: LANOXIN PO SCH (08:42)
[2016-11-06] MEDS: PAXIL PO SCH ×2 (08:43→21:58)
[2016-11-06] MEDS: QUESTRAN LIGHT PO SCH (08:43)
[2016-11-06] MEDS: CULTURELLE PO SCH (08:43)
[2016-11-06] MEDS: KLONOPIN PO SCH ×2 (08:44→21:57)
--- NOTE | 2016-11-06 14:50 | PROGRESS NOTE ---
DATE: 11/06/2016 SUBJECTIVE: Ms. Eduardo is actually having a better day. She feels a little better, is getting a little food down, and had slept some last night, according to family, so overall feels much better. No pain at the present time. This is a patient of Dr. Mario Hobson. OBJECTIVE: Vital Signs: Temperature 98.7 degrees, pulse 70, respirations 16, blood pressure 123/93. HEENT: Pupils are equal. Neck: CVP less than 6 cm. Lungs: Clear in all lung workman. Cardiovascular: Regular rhythm and rate, without murmur or S3. Abdomen: Soft. Skin: Warm and dry. URINE OUTPUT: Good, by report. LABORATORIES: From this morning, white count 3420, hematocrit is 29, platelet count 164,000. Sodium 138, potassium 3.4, chloride 105, bicarbonate 21, BUN 4, creatinine 0.5. Magnesium was checked yesterday and was 1.7. ASSESSMENT AND PLAN: 1. Pancytopenia status post transfusion of packed red blood cells and platelets. The patient continues to improve all her blood counts. This suggests chemotherapy as the likely etiology. 2. Anticoagulation. Risks for Xarelto therapy outweigh the benefits. Consider resuming Xarelto after discussion with Dr. Parrish. 3. Hypokalemia. Have supplemented. May give her a little bit of potassium again today. 4. Profound weakness. Continue physical therapy. 5. Pancreatic cancer. Patient on chemotherapy. Management per Dr. Parrish. 6. Clostridium difficile colitis, improving. She is being treated with Flagyl therapy. 7. Atrial fibrillation. Rate has been controlled. Hemodynamics look good. 8. Disposition: Try to go home with long-term. Reviewed the orders. Is on lactobacillus 1 a day. IVs to keep vein open. Flagyl 500 mg p.o. q.8 hours. Cholestyramine 4 g daily. Propranolol 160 mg at bedtime. Paxil 10 mg b.i.d. Marinol 2.5 mg at bedtime. She gets eyedrops. I do not see any changes.
[2016-11-06] MEDS: INDERAL LA PO SCH (21:57)
[2016-11-06] MEDS: MARINOL PO SCH (21:57)
[2016-11-07] MEDS: COSOPT OPHTH SOLN BOTH EYES SCH ×3 (04:25→23:05)
[2016-11-07] MEDS: LUMIGAN 0.01% OPH SOLUTION BOTH EYES SCH ×2 (04:25→23:04)
[2016-11-07] MEDS: FLAGYL PO SCH ×3 (05:48→22:57)
[2016-11-07] MEDS: PAXIL PO SCH ×2 (08:52→22:57)
[2016-11-07] MEDS: CULTURELLE PO SCH (08:52)
[2016-11-07] MEDS: LANOXIN PO SCH (08:52)
[2016-11-07] MEDS: QUESTRAN LIGHT PO SCH (08:53)
[2016-11-07] MEDS: KLONOPIN PO SCH ×2 (08:53→22:57)
[2016-11-07] MEDS: POTASSIUM CHLORIDE 20% LIQUID PO SCH (13:04)
--- NOTE | 2016-11-07 14:55 | PROGRESS NOTE ---
DATE: 11/07/2016 SUBJECTIVE: She feels better. Her son was there. Seems to be improving. She is encouraged. OBJECTIVE: Vital signs: Remains afebrile. Temp 98.0 degrees, pulse 70, respirations 16, blood pressure 115/44. HEENT: Pupils are equal and round. Neck: CVP less than 6 cm. Lungs: Clear in all lung workman. Cardiovascular: Regular rhythm and rate without murmur or S3. Abdomen: Soft. Skin: Warm and dry. Intake and output: Urine output 640. REVIEW OF LABS: Lab no new lab today. Reviewed lab from the 3rd. ASSESSMENT AND PLAN: 1. Pancytopenia status post transfusion of packed red blood cells and platelets. Patient's pancytopenia continues to improve. We will check another CBC in the morning and maybe a Chem 22 as well. She is improving clinically. 2. Anticoagulation. Risks of Xarelto therapy outweigh the benefits with her. May want to discuss continuing this later. For now will hold. 3. Hyperkalemia. Patient's potassium, will follow. Check some electrolytes in the morning. 4. Profound weakness. Continue physical therapy. Seeing some improvement. 5. Pancreatic cancer. The patient's chemotherapy has been held for now. Follow with Dr. Parrish. 6. Clostridium difficile colitis. Still having loose stools. Continue Flagyl. Continue Questran. 7. Atrial fibrillation. Rate controlled. 8. Continues to require nursing home care in the hospital setting. Hopefully we can set her up to discharge home soon. She is making improvement. She might get to go tomorrow.
--- NOTE | 2016-11-07 15:35 | PROGRESS NOTE ---
DATE: 11/07/2016 SUBJECTIVE: Patient was resting up in the chair. I have talked with her son. I did not wake the patient today. He states she is a little more weak today. Son reports that she did get up and walk yesterday but today is a little more tired. He reported she had a incontinent stool. She is being treated with antibiotics for C. difficile on Flagyl. OBJECTIVE: Vital Signs: Temperature 98.0 degrees, pulse 72, respirations 16, blood pressure 115/44. LABORATORY RESULTS: From 11/06/2016. Hematology. White count 3.42, hemoglobin 9.7, hematocrit 29.1, MCV 91.8, platelets 164,000. Chemistry 11/06/2016 sodium 138, potassium 3.4, chloride 105, CO2 21, BUN 4, creatinine 0.5, total bilirubin 1.19, AST 20, ALT 8, alkaline phosphatase 123. ASSESSMENT AND PLAN: 1. Pancytopenia improved after receiving packed red blood cells and platelets. 2. Pancreatic cancer following by Dr. Parrish for chemotherapy. 3. Atrial fibrillation/anticoagulation. Currently Xarelto is on hold. 4. Anemia, questionable gastrointestinal bleed. No further bleeding noted. She has had some diarrhea stools from Clostridium difficile. Continue antibiotics. Continue to monitor hemoglobin and hematocrit. 5. Clostridium difficile colitis improving, treating with antibiotics. Son states her stools are getting a little more firm. Continue current medications. Continue supportive care. Continue symptomatic treatment. Continue antibiotics for C. difficile colitis. We will continue to follow. Dictated by LEEANNA Jimenez for Marcos Kumar MD
[2016-11-07] MEDS: PERCOCET-5 PO PRN (22:58)
[2016-11-07] MEDS: INDERAL LA PO SCH (22:58)
[2016-11-07] MEDS: MARINOL PO SCH (23:04)
[2016-11-08] MEDS: FLAGYL PO SCH ×3 (06:41→20:22)
--- NOTE | 2016-11-08 08:31 | PROGRESS NOTE ---
DATE: 11/08/2016 SUBJECTIVE: Patient states she is feeling better today. Daughter did report she had 4 semi loose stools since yesterday afternoon. OBJECTIVE: General: Patient is sitting up in the chair, in no acute distress. She is awake and alert today. Vital Signs: Temperature 96.8 degrees, pulse 114, respiratory rate 15, blood pressure 142/53. LABORATORY: On 11/06/2016 hematology: WBC 3.42, hemoglobin 9.7, hematocrit 29.1, MCV 91.8, platelet 164,000. Chemistry: Sodium 138, potassium 3.4, chloride 105, CO2 21, BUN 4, creatinine 0.5, total bilirubin 1.19, AST 20, ALT 8, alkaline phosphatase 123. ASSESSMENT AND PLAN: 1. Pancytopenia, improving. 2. Pancreatic cancer. Followed by Dr. Parrish. 3. Atrial fibrillation/anticoagulation. Currently her Xarelto is on hold. 4. Anemia. Improving after packed red blood cells and platelets. No further evidence of black stools or blood in the stool. She is being treated for C. difficile colitis. 5. Clostridium difficile colitis. Improving with antibiotics. She is still having some semi loose stools but they are improving. She is receiving Questran daily along with probiotics and Flagyl. We will continue to follow. GI will be available as needed. Dictated by LEEANNA iJmenez for Marcos Kumar MD
[2016-11-08] MEDS: PAXIL PO SCH ×2 (10:11→20:22)
[2016-11-08] MEDS: KLONOPIN PO SCH ×2 (10:11→20:22)
[2016-11-08] MEDS: LANOXIN PO SCH (10:11)
[2016-11-08] MEDS: COSOPT OPHTH SOLN BOTH EYES SCH ×2 (10:11→20:24)
[2016-11-08] MEDS: QUESTRAN LIGHT PO SCH (10:11)
[2016-11-08] MEDS: CULTURELLE PO SCH (10:11)
[2016-11-08] MEDS: POTASSIUM CHLORIDE 20% LIQUID PO SCH (10:12)
[2016-11-08] MEDS: PERCOCET-5 PO PRN ×2 (10:15→20:23)
[2016-11-08 14:28] LABS: BASO% 0.6 % (0.0-0.8); EOS# 0.02 X1000 (0.0-0.7); EOS% 0.3 % (0.0-10.0); HEMATOCRIT 30.6 % (37.0-47.0); HEMOGLOBIN 10.2 g/dL (12.0-16.0); IMM GRAN# 0.32 X1000 (0.0-0.04); LYMPH# 0.85 X1000 (1.2-3.4); LYMPH% 13.3 % (20.5-51.1); MANUAL DIFF NEEDED? YES; MCH 31.2 PG (27-31); MCHC 33.3 g/dL (33-37); MCV 93.6 FL (81-99); MONO# 1.09 X1000 (0.11-0.59); MPV 10.7 FL (7.4-10.4); NEUT% 63.8 % (42.2-75.2); PLT 290 X1000 (130-400); RBC 3.27 XMIL (4.2-5.4)
[2016-11-08 14:40] LABS: AGAP 12; ALBUMIN 2.1 g/dL (3.5-5.0); ALKALINE PHOSPHATASE 168 U/L (32-104); BUN 7 mg/dL (8-22); CALCIUM 8.1 mg/dL (8.8-10.2); CHLORIDE 106 mmol/L (98-107); COSMO 274; GOT 21 U/L (10-30); GPT 8 U/L (10-36); POTASSIUM 3.8 mmol/L (3.5-5.1); SODIUM 138 mmol/L (136-145); TCO2 20 mmol/L (25-35); TOTAL BILIRUBIN 1.32 mg/dL (0.20-1.00); TOTAL PROTEIN 4.7 g/dL (6.3-8.3)
[2016-11-08 14:41] LABS: BANDS 22 % (0-1); LYMPHS 10 % (21-51); MONO 8 % (1-9)
[2016-11-08] MEDS: NS 1,000 ML IV SCH (16:14)
[2016-11-08] MEDS: INDERAL LA PO SCH (20:22)
[2016-11-08] MEDS: MARINOL PO SCH (20:22)
[2016-11-08] MEDS: LUMIGAN 0.01% OPH SOLUTION BOTH EYES SCH (20:24)
--- NOTE | 2016-11-08 22:05 | PROGRESS NOTE ---
DATE: 11/08/2016 SUBJECTIVE: The events of the weekend were reviewed. In summary, patient continues to very slowly improve. Patient's pancytopenia has essentially resolved. Her anticoagulation continues to be held. Over the weekend, her diarrhea improved with only minimal activity present. Over the course of the last 24 hours, unfortunately, patient's diarrhea has increased. She had multiple incontinent stools overnight. She denies fevers, chills, nausea, and vomiting. Her p.o. intake is marginal. She desires to the marginal. OBJECTIVE: Vital signs: Temperature maximum is 99.3, heart rate 56 to 114, respirations 15 to 18, blood pressure 115-142/42-55. General: Chronically ill appearing, in no acute distress. Cardiovascular: Irregularly irregular. No significant murmurs, rubs, or gallops. Pulmonary: Clear to auscultation bilaterally. Abdomen: Soft, nontender, nondistended. Positive bowel sounds. Extremities: Moves all extremities well. No significant clubbing, cyanosis, or edema. Dermatologic: Evaluation reveals no evidence of rash. LABORATORY DATA: White blood cell count 6.41, hemoglobin 10.2, hematocrit 30.6, platelet counts 290,000. Sodium 138, potassium 3.8, chloride 106, bicarb 20, BUN 7, creatinine 0.6, glucose 104, calcium 8.1, total bilirubin 0.32. Total protein 4.7, albumin 2.1, alkaline phosphatase 168, AST 21, ALT 18. ASSESSMENT AND PLAN: 1. Pancytopenia-likely secondary to chemotherapy. The patient required immediate transfusions upon admission, but with time has achieved resolution. We will continue supportive care. 2. Anticoagulation-patient Xarelto has been held secondary to her pancytopenia. With pancytopenia improving, we will consider resuming a lower dose Xarelto therapy. We will discuss this further with Dr. Parrish. 3. Hypokalemia-the patient's potassium is acceptable today. We will continue to follow. 4. Profound weakness-we will continue patient on physical therapy. This likely is secondary to a combination of pancreatic cancer and acute illness. 5. Pancreatic cancer-patient's chemotherapy has been held for now. We will plan to resume this once completion of treatment for Clostridium difficile colitis. 6. Clostridium difficile colitis-as above. Patient's diarrhea decreased over the weekend, but patient experienced a significant exacerbation overnight. For now, we will continue supportive care and treatment with Flagyl therapy. We will follow this. 7. Atrial fibrillation-patient is rate controlled. As above, anticoagulation has been held. 8. Disposition-at this point, the patient continues to require [facility] care in a hospital setting. We will plan discharge home once diarrhea has improved.
[2016-11-09] MEDS: FLAGYL PO SCH ×3 (06:53→20:18)
[2016-11-09] MEDS: POTASSIUM CHLORIDE 20% LIQUID PO SCH (09:33)
[2016-11-09] MEDS: QUESTRAN LIGHT PO SCH ×3 (09:33→20:17)
[2016-11-09] MEDS: KLONOPIN PO SCH ×2 (09:33→20:18)
[2016-11-09] MEDS: LANOXIN PO SCH (09:34)
[2016-11-09] MEDS: CULTURELLE PO SCH (09:34)
[2016-11-09] MEDS: PAXIL PO SCH ×2 (09:34→20:17)
[2016-11-09] MEDS: PERCOCET-5 PO PRN ×2 (09:34→20:17)
[2016-11-09] MEDS: COSOPT OPHTH SOLN BOTH EYES SCH ×2 (09:35→20:19)
--- NOTE | 2016-11-09 11:07 | PROGRESS NOTE ---
DATE: 11/09/2016 SUBJECTIVE: This morning, patient states she is feeling much better than yesterday. Patient states she rested well overnight. Yesterday, she had no further episodes of diarrhea. Her p.o. intake remains marginal, but it is improving. She remains quite weak, but continues to work with physical therapy. She denies fevers, chills, nausea, and vomiting. OBJECTIVE: T-max 97.7 degrees, heart rate 57-68, respirations 15-16, blood pressure 116-142/38- 53. General: Chronically ill appearing, no acute distress. Cardiovascular: Irregularly irregular. No significant murmurs, rubs, or gallops. Pulmonary: Clear to auscultation bilaterally. Abdomen: Soft, nontender, nondistended. Positive bowel sounds. Extremities: Moves all extremities well. No significant clubbing, cyanosis, or edema. Dermatologic: Evaluation reveals no evidence of rash. LABORATORY DATA: None. ASSESSMENT AND PLAN: 1. Pancytopenia - patient has achieved resolution. This likely was chemotherapy associated. We will continue supportive care. 2. Anticoagulation - patient's Xarelto continues to be held. We will consider starting back low- dose Xarelto if acceptable per Dr. Parrish. 3. Hypokalemia - patient's potassium yesterday was acceptable. We will continue to follow. 4. Profound weakness - as above, this is slowly improving. We will continue physical therapy. 5. Pancreatic cancer - the patient's chemotherapy has been held. We will plan to resume once Clostridium difficile colitis has been treated and resolved. 6. Clostridium difficile colitis - as above, patient's diarrhea has improved from yesterday. We will continue Flagyl and Questran therapy. If this patient continues to do well through the day today, we will consider discharge this evening or tomorrow. 7. Atrial fibrillation - patient is rate controlled. As above, anticoagulation has been held. 8. Disposition - at this point, patient continues to require care home care in the hospital setting. We will plan discharge home once appropriate.
--- NOTE | 2016-11-09 11:12 | PROGRESS NOTE ---
DATE: 11/09/2016 SUBJECTIVE: The patient states she is feeling better. She has had 1 episode of a semi loose stool today. She is hoping to go home soon. OBJECTIVE: Vital Signs: Temperature 97.4 degrees, pulse 68, respirations 16, blood pressure 131/47. Generally: Patient is awake and alert. No acute distress. Cardiovascular: Irregular rate. Pulmonary: Lung sounds essentially clear. Abdomen: Soft, nontender, positive bowel sounds. LABORATORY RESULTS: Hematology: White count 6.41, hemoglobin 10.2, hematocrit 30.6, MCV 96.3, platelets 290,000. Chemistry: Sodium 138, potassium 3.8, chloride 106, CO2 20, BUN 7, creatinine 0.6, glucose 104, total bilirubin 1.32. AST 21, ALT 8, alkaline phosphatase 168. ASSESSMENT AND PLAN: 1. Pancytopenia has improved. 2. Anticoagulation for history of atrial fibrillation. Currently Xarelto is on hold. 3. Weakness. She is working with physical therapy and states she has walked in the hallways today. 4. Pancreatic cancer. Chemotherapy currently on hold. Will follow up with Dr. Parrish. 5. Clostridium difficile colitis. Currently on antibiotic treatment. She is receiving Questran. We will increase the dose to twice a day if needed. Continue supportive care. Continue to monitor and GI will be available as needed. Dictated by LEEANNA Jimenez for Marcos Kumar MD
[2016-11-09] MEDS: INDERAL LA PO SCH (20:17)
[2016-11-09] MEDS: MARINOL PO SCH (20:18)
[2016-11-09] MEDS: LUMIGAN 0.01% OPH SOLUTION BOTH EYES SCH (20:18)
[2016-11-10] MEDS: FLAGYL PO SCH ×2 (05:38→14:19)
[2016-11-10] MEDS: COSOPT OPHTH SOLN BOTH EYES SCH ×2 (08:55→20:54)
[2016-11-10] MEDS: CULTURELLE PO SCH (08:55)
[2016-11-10] MEDS: POTASSIUM CHLORIDE 20% LIQUID PO SCH (08:55)
[2016-11-10] MEDS: LANOXIN PO SCH (08:55)
[2016-11-10] MEDS: QUESTRAN LIGHT PO SCH ×2 (08:55→20:53)
[2016-11-10] MEDS: KLONOPIN PO SCH ×2 (08:56→20:53)
[2016-11-10] MEDS: PAXIL PO SCH ×2 (08:56→20:52)
[2016-11-10] MEDS: PERCOCET-5 PO PRN ×3 (08:56→20:52)
[2016-11-10] MEDS: NS 1,000 ML IV SCH (09:05)
--- NOTE | 2016-11-10 14:59 | PROGRESS NOTE ---
DATE: 11/10/2016 SUBJECTIVE: Patient and daughter report that she had about 7 loose stools during the night. Ms. Eduardo complains of some abdominal cramping. OBJECTIVE: Vital Signs: Temperature 97.4 degrees, pulse 63, respirations 18, blood pressure 142/64. Generally: Patient is awake and alert. No acute distress. Respiratory: Lung sounds essentially clear. Abdomen: Soft, mildly tender. Positive bowel sounds. DIAGNOSTIC RESULTS: Laboratory 11/08/2016: Hematology; white count 6.41, hemoglobin 10.2, hematocrit 30.6, MCV 93.6. Chemistry; sodium 138, potassium 3.8, chloride 106, CO2 20, BUN 7, creatinine 0.6, glucose 104. ASSESSMENT AND PLAN: 1. Pancytopenia has resolved. Her chemotherapy had been on hold. We will follow with Dr. Parrish regarding resuming chemotherapy. 2. Anticoagulation. Her Xarelto had been on hold. Dr. Parrish and Dr. Hobson are following. 3. Pancreatic cancer. Chemo currently on hold, following with Dr. Parrish. 4. Clostridium difficile colitis. She is still having some increased diarrhea. We had tried increasing Questran yesterday to twice a day. We will change her Flagyl to vancomycin 125 mg p.o. every 6 hours and stop Flagyl. 5. Other plans to be made as needed. I have discussed this case with Dr. Kumar. Dictated by LEEANNA Jimenez for Marcos Kumar MD
--- NOTE | 2016-11-10 15:42 | PROGRESS NOTE ---
DATE: 11/10/2016 SUBJECTIVE: Unfortunately, patient continues to have frequent loose bowel movements despite Questran and Flagyl therapy. The patient's p.o. intake remains marginal. She denies significant nausea or vomiting. She does remain very weak. She denies fevers, chills, shortness of breath, or chest discomfort. OBJECTIVE: T-max 98.1 degrees, heart rate 50-63, respirations 17-18, blood pressure 116-150 over 44-65.General: Chronically ill-appearing, no acute distress. Cardiovascular: Irregularly irregular. No significant murmurs, rubs, or gallops. Pulmonary: Clear to auscultation bilaterally. Abdomen: Soft, nontender, nondistended. Positive bowel sounds. Extremities: Moves all extremities well. No significant clubbing, cyanosis, or edema. Dermatologic: Evaluation reveals no evidence of rash. LABORATORY DATA: None. ASSESSMENT AND PLAN: 1. Pancytopenia - Patient has acute resolution. This likely was chemotherapy associated. We will remain aware. 2. Anticoagulation. We will start low-dose Xarelto. We will follow patient's hemoglobin and hematocrit. 3. Hypokalemia - Patient's most recent potassium evaluation returned acceptable left replacement. We will remain aware. 4. Profound weakness - We will continue physical therapy. This is slowly improving. 5. Pancreatic cancer - Patient's chemotherapy has been held. Once Clostridium difficile colitis has been controlled and treated, we will plan to resume therapy. 6. Clostridium difficile colitis - Unfortunately, patient continues to have significant symptoms despite Flagyl and Questran therapy. We will discuss this with Dr. Kumar and determine if changing the vancomycin therapy is appropriate. 7. Atrial fibrillation - The patient is rate controlled. She has intermittently had asymptomatic, nonsustained episodes of heart rates in the upper 30s. For now, we will follow. We will address anticoagulation as above. 8. Disposition - Unfortunately, patient continues to require detention care in the hospital setting secondary to persistent diarrhea. We will plan discharge home once this has improved.
[2016-11-10] MEDS: XARELTO PO SCH (16:51)
[2016-11-10] MEDS: VANCOCIN PO SCH ×2 (16:51→20:52)
[2016-11-10] MEDS: MARINOL PO SCH (20:52)
[2016-11-10] MEDS: INDERAL LA PO SCH (20:52)
[2016-11-10] MEDS: LUMIGAN 0.01% OPH SOLUTION BOTH EYES SCH (20:54)
[2016-11-11] MEDS: VANCOCIN PO SCH ×4 (04:37→22:01)
[2016-11-11 07:07] LABS: BASO% 0.4 % (0.0-0.8); EOS# 0.04 X1000 (0.0-0.7); EOS% 0.5 % (0.0-10.0); HEMATOCRIT 31.2 % (37.0-47.0); HEMOGLOBIN 10.7 g/dL (12.0-16.0); IMM GRAN# 0.31 X1000 (0.0-0.04); IMM GRAN% 3.6 % (0.0-0.5); LYMPH# 0.85 X1000 (1.2-3.4); MANUAL DIFF NEEDED? NO; MCH 32.4 PG (27-31); MCHC 34.3 g/dL (33-37); MCV 94.5 FL (81-99); MONO# 0.87 X1000 (0.11-0.59); MONO% 10.2 % (1.7-9.3); MPV 10.2 FL (7.4-10.4); NEUT% 75.3 % (42.2-75.2); PLT 317 X1000 (130-400)
[2016-11-11 07:10] LABS: AGAP 12; ALBUMIN 1.9 g/dL (3.5-5.0); ALKALINE PHOSPHATASE 187 U/L (32-104); BUN 5 mg/dL (8-22); CALCIUM 8.2 mg/dL (8.8-10.2); CHLORIDE 106 mmol/L (98-107); COSMO 272; GOT 21 U/L (10-30); GPT 7 U/L (10-36); POTASSIUM 3.2 mmol/L (3.5-5.1); SODIUM 138 mmol/L (136-145); TCO2 20 mmol/L (25-35); TOTAL BILIRUBIN 1.07 mg/dL (0.20-1.00); TOTAL PROTEIN 4.6 g/dL (6.3-8.3)
[2016-11-11] MEDS: LANOXIN PO SCH (10:06)
[2016-11-11] MEDS: CULTURELLE PO SCH (10:06)
[2016-11-11] MEDS: QUESTRAN LIGHT PO SCH ×2 (10:07→22:01)
[2016-11-11] MEDS: PAXIL PO SCH ×2 (10:07→22:02)
[2016-11-11] MEDS: COSOPT OPHTH SOLN BOTH EYES SCH ×2 (10:08→22:02)
[2016-11-11] MEDS: POTASSIUM CHLORIDE 20% LIQUID PO SCH (10:08)
--- NOTE | 2016-11-11 11:59 | CONSULTATION ---
DATE OF CONSULTATION: 11/11/2016 HISTORY OF PRESENT ILLNESS: Patient was admitted with increasing weakness and shortness of breath. She has multiple medical problems. In addition to chronic atrial fibrillation, pancreatic cancer. She was noted to have an 18-beat run of broad complex tachycardia. Cardiology was consulted. At time of my examination, patient does not complain of any chest pain or palpitations. She was admitted with significant weakness. REVIEW OF SYSTEMS: A 14-point review of systems was done.Gastrointestinal: There is no history of hematemesis or melena. Central Nervous System: No focal weakness to suggest a CVA or TIA. Genitourinary: There is no dysuria or hematuria. Respiratory: There is no history of hemoptysis, fevers, or chills. PAST MEDICAL HISTORY: 1. Pancreatic cancer. 2. Chronic atrial fibrillation. 3. Left breast cancer. 4. Status post bilateral cataract removal. 5. Cholecystectomy. 6. Nephrolithiasis. 7. Hypertension. 8. Hyperlipidemia. 9. Glaucoma. 10. Colonic polyps. 11. Bilateral ptosis. 12. Endometrial cancer status post abdominal hysterectomy and has had chemotherapy in the past. MEDICATIONS: Digoxin; propranolol 160; spironolactone 25; fenofibrate 160; clonazepam 0.5 t.i.d.; atorvastatin; paroxetine; eye drops; Keflex. PHYSICAL EXAMINATION: Vital Signs: Blood pressure was 127/42. Cardiovascular: Normal jugular venous pressure. There is no thyromegaly. No carotid bruit. First and 2nd heart sounds are heard. There is soft systolic murmur. Respiratory: Normal air entry. Abdomen: Soft. Central Nervous System: Detailed examination not performed. The patient was alert, oriented, and was moving extremities. Extremities: There is mild edema. LABORATORY EXAMINATION: Sodium 138, potassium 3.2, BUN 5, creatinine 0.6, magnesium was 1.4 and subsequently 1.7. Chest x-ray: No acute disease. Electrocardiogram revealed atrial fibrillation. Telemetry revealed an 18-beat run of broad complex tachycardia, which was irregular and is likely to represent aberrancy of conduction; however, currently she is stable. RECOMMENDATIONS: 1. From a cardiac standpoint, she is on digoxin and digoxin level is normal. She is on beta- blockers, as well. I have not made any changes to medication. We will check a BMP and a magnesium level. She is Clostridium difficile positive and likely to have electrolyte imbalance. Would recommend keeping potassium around 4. The magnesium we will check today and if subtherapeutic we will give her magnesium. 2. She has some multiple other issues pertaining to her pancreatic cancer, hypertension and the Clostridium difficile positive. I have not made any other changes to her medications. Thank you for the consult. We will follow her hospital course.
[2016-11-11] MEDS: KLONOPIN PO SCH ×2 (12:28→22:01)
--- NOTE | 2016-11-11 13:01 | EKG Report ---
Test Performed on : 11/11/2016 10:53:09 AM Test Reason : arrhythmia Blood Pressure : / mmHG Vent. Rate : 064 BPM Atrial Rate : 288 BPM P-R Int : 000 ms QRS Dur : 102 ms QT Int : 438 ms P-R-T Axes : 000 -49 060 degrees QTc Int : 451 ms Atrial fibrillation. Left anterior fascicular block Septal infarct , age undetermined Abnormal ECG When compared with ECG of 13-AUG-2016 22:57, Septal infarct is now present T wave inversion no longer evident in Anterior leads QT has lengthened Confirmed by Jarrod SANTO, Raj Cherry ([id number]) on 11/11/2016 4:49:23 PM
[2016-11-11] MEDS: XARELTO PO SCH (17:04)
[2016-11-11] MEDS: INDERAL LA PO SCH (22:01)
[2016-11-11] MEDS: LUMIGAN 0.01% OPH SOLUTION BOTH EYES SCH (22:02)
[2016-11-11] MEDS: MARINOL PO SCH (22:02)
[2016-11-11] MEDS: NS 1,000 ML IV SCH (22:24)
--- NOTE | 2016-11-11 22:28 | PROGRESS NOTE ---
DATE: 11/11/2016 SUBJECTIVE: Patient states, overall, she is slightly improved from yesterday. Her p.o. intake has improved modestly. Unfortunately, she continues to have frequent loose stools. Yesterday, patient was changed from Flagyl to vancomycin therapy. She denies fevers, chills, nausea, vomiting, shortness of breath, or chest discomfort. She also continues to have infrequent episodes of atrial fibrillation with a slow ventricular response. Each of these episodes have been transient and asymptomatic. OBJECTIVE: Vital Signs: Temperature maximum 98.4 degrees, heart rate 57-72, respirations 18-20, blood pressure 123-140/42-60. General: Chronically ill appearing, in no acute distress. Cardiovascular: Irregularly irregular. No significant murmurs, rubs, or gallops. Pulmonary: Clear to auscultation bilaterally. Abdomen: Soft, nontender, nondistended. Positive bowel sounds. Extremities: No significant clubbing, cyanosis or edema. Dermatologic: Evaluation reveals no evidence of rash. LABORATORY DATA: White blood cell count 8.50, hemoglobin 10.7, hematocrit 31.2, platelet count 317,000. Sodium 138, potassium 3.2, chloride 106, bicarbonate 20, BUN 5, creatinine 0.6, glucose 79, calcium 8.2, magnesium 1.4, total bilirubin 1.07, total protein 4.6, albumin 1.9, alkaline phosphatase 187, AST 21, ALT 7. ASSESSMENT AND PLAN: 1. Pancytopenia - Patient has achieved resolution over time. This likely was chemotherapy associated. We will remain aware. 2. Anticoagulation - Full dose of Xarelto has been discontinued secondary to her significant anemia and loose stools. We have, however, resumed low-dose therapy. We will remain aware. 3. Hypokalemia - The patient's potassium remains low today. We will continue replacement. We will recheck tomorrow. 4. Hypomagnesemia - We will replete. 5. Profound weakness - We will continue the patient on physical therapy. She is very slowly improving. 6. Pancreatic cancer - Patient's chemotherapy has been held. Once her Clostridium difficile colitis has resolved we will consider resuming therapy. 7. Clostridium difficile colitis - Unfortunately, patient continues to have considerable symptoms despite changing to vancomycin therapy. We will continue to follow with Dr. José. 8. Atrial fibrillation with slow ventricular response/ventricular tachycardia - Each of these episodes have been nonsustained and asymptomatic. We will consult Dr. Newby to confirm no further cardiologic intervention is warranted. 9. Disposition - At this point, patient continues to require longterm care in a hospital setting. We will plan discharge home once appropriate.
[2016-11-12] MEDS: VANCOCIN PO SCH ×4 (04:40→21:42)
[2016-11-12 08:10] LABS: AGAP 10; BUN 5 mg/dL (8-22); CHLORIDE 106 mmol/L (98-107); COSMO 274; POTASSIUM 3.3 mmol/L (3.5-5.1); SODIUM 138 mmol/L (136-145); TCO2 22 mmol/L (25-35)
[2016-11-12] MEDS: KLONOPIN PO SCH ×2 (08:25→21:41)
[2016-11-12] MEDS: CULTURELLE PO SCH (08:25)
[2016-11-12] MEDS: LANOXIN PO SCH (08:26)
[2016-11-12] MEDS: PAXIL PO SCH ×2 (08:26→21:42)
[2016-11-12] MEDS: POTASSIUM CHLORIDE 20% LIQUID PO SCH (08:27)
[2016-11-12] MEDS: COSOPT OPHTH SOLN BOTH EYES SCH ×2 (08:28→21:44)
[2016-11-12] MEDS: QUESTRAN LIGHT PO SCH ×2 (10:14→22:49)
--- NOTE | 2016-11-12 12:51 | PROGRESS NOTE ---
DATE: 11/12/2016 SUBJECTIVE: Patient was asleep. I did not wake her today. I talked with her daughter who was at the bedside. She states her diarrhea is about the same with improvement in her abdominal cramping. She has not had any accidents. Her antibiotic was changed to vancomycin and Flagyl was discontinued. She is receiving Questran twice a day and probiotic daily. OBJECTIVE: Vital signs: Temperature 97.5 degrees, pulse 62, respirations 20, blood pressure 142/53. Generally: Patient is resting in no acute distress. LABORATORY: Hematology: White count 8.50, hemoglobin 10.7, hematocrit 31.2, MCV 94.5, platelets 317,000. Chemistry: Sodium 138, potassium 3.3, chloride 106, CO2 22, BUN 5, creatinine 0.6, glucose 125. ASSESSMENT AND PLAN: 1. Pancreatic cancer. Currently chemo on hold. Followed by Dr. Parrish. 2. Clostridium difficile colitis. Receiving antibiotics. Continue Questran and probiotic. 3. Cardiac arrhythmia. She had an 18 beat run of tachycardia. Cardiology was consulted. She was seen by Dr. Newby. 4. Weakness, fatigue. Continue physical therapy. 5. Atrial fibrillation. Her Xarelto was on hold. That has been started back. 6. Pancytopenia has resolved. Continue supportive care. Continue current medications. GI will be available as needed. Dr. Kumar will be off next week. Dr. Zelaya will be available covering for him if needed. Dictated by LEEANNA Jimenez for Marcos Kumar MD
[2016-11-12] MEDS ORDERED: MAGNESIUM SULFATE 2 GM/S.W.I. 50 ML IV ONE (15:21)
--- NOTE | 2016-11-12 17:24 | PROGRESS NOTE ---
DATE: 11/12/2016 SUBJECTIVE: Overall, the patient continues to very slowly improve. Unfortunately, she has had several loose bowel movements over the course of the last 24 hours. One of these, patient was incontinent. She is currently being treated with Questran and vancomycin therapy. She denies fevers, chills, nausea, vomiting, shortness of breath, or chest discomfort. Her p.o. intake remains marginal. Her energy level is low, but is improving. OBJECTIVE: T-max 98.4 degrees, heart rate 51-90, respirations 18-20, blood pressure 125-149 over 49-90.General: Chronically ill appearing, in no acute distress. Cardiovascular: Irregularly irregular. No significant murmurs, rubs, or gallops. Pulmonary: Clear to auscultation bilaterally. Abdomen: Soft, nontender, nondistended. Positive bowel sounds. Extremities: Moves all extremities well. No significant clubbing or cyanosis. Patient has 1+ lower extremity edema bilaterally. Dermatologic: Evaluation reveals no evidence of rash. LABORATORY DATA: Sodium 138, potassium 3.3, chloride 106, bicarb 22, BUN 5, creatinine 0.6, glucose 125, calcium 8.0. ASSESSMENT AND PLAN: 1. Pancytopenia-this was likely chemotherapy-associated. She has achieved full resolution with time. 2. Clostridium difficile colitis-unfortunately, patient continues to have considerable symptoms including stool incontinence. We will continue vancomycin and Questran per Dr. Kumar. Once her stools have solidified, we will plan discharge home. 3. Anticoagulation-patient's full dose Xarelto has been held. She is currently being treated with low-dose. We will remain aware. 4. Hypokalemia-patient is being treated with potassium supplementation. We will follow this. 5. Hypomagnesemia-we will remain aware. 6. Profound weakness. Patient is currently being treated with physical therapy. She is slowly improving. 7. Pancreatic cancer-patient's chemotherapy has been held. We will plan to resume this once her Clostridium difficile colitis has reached resolution. 8. Atrial fibrillation with slow ventricular response/paroxysmal ventricular tachycardia-each of these episodes have been asymptomatic. I appreciate Dr. Newby's consultation. We will continue to follow. 9. Disposition-at this point, the patient continues to require senior care care in a hospital setting. We will plan discharge home once appropriate.
[2016-11-12] MEDS: XARELTO PO SCH (17:28)
[2016-11-12] MEDS: MARINOL PO SCH (21:42)
[2016-11-12] MEDS: INDERAL LA PO SCH (21:42)
[2016-11-12] MEDS: LUMIGAN 0.01% OPH SOLUTION BOTH EYES SCH (21:44)
[2016-11-13] MEDS: VANCOCIN PO SCH ×4 (04:38→21:57)
[2016-11-13] MEDS: CULTURELLE PO SCH (08:55)
[2016-11-13] MEDS: LANOXIN PO SCH (08:55)
[2016-11-13] MEDS: QUESTRAN LIGHT PO SCH ×2 (08:56→21:59)
[2016-11-13] MEDS: KLONOPIN PO SCH ×2 (08:56→21:57)
[2016-11-13] MEDS: PAXIL PO SCH ×2 (08:56→21:58)
[2016-11-13] MEDS: POTASSIUM CHLORIDE 20% LIQUID PO SCH (08:56)
[2016-11-13] MEDS: COSOPT OPHTH SOLN BOTH EYES SCH ×2 (08:59→21:59)
--- NOTE | 2016-11-13 15:11 | PROGRESS NOTE ---
DATE: 11/13/2016 SUBJECTIVE: Ms. Eduardo is doing well. She has no complaints today. She is tolerating oral intake. OBJECTIVE: PHYSICAL EXAMINATION: Vital Signs: She is afebrile. Heart rate of 79, blood pressure 120/63. General: No acute distress. Cardiovascular: Irregularly irregular. No obvious murmurs. No S3. She has trace to 1+ bilateral lower extremity edema. Chest: Clear to auscultation bilaterally. No increased work of breathing. Abdomen: Soft, nontender. PERTINENT DATA: She has no recent laboratory data from today. ASSESSMENT: Atrial fibrillation. PLAN: Patient seems rate controlled at this point. We will continue her on current regimen. She is on some propranolol as well as digoxin and this seems to be effective. At this point, she is on Xarelto 10 mg. I will defer this dosing to Dr. Newby who previously saw her.
--- NOTE | 2016-11-13 15:46 | PROGRESS NOTE ---
DATE: 11/13/2016 SUBJECTIVE: The patient's condition continued to slowly improve. Over the course of the last 24 hours, patient finally has experienced some solidification of her stool. She has had no episodes of bowel incontinence. She continues to tolerate oral vancomycin for her underlying Clostridium difficile colitis. While she continues to have weakness, this is improving. Her p.o. intake is also slowly improving. OBJECTIVE: T-max 97.9 degrees, heart rate 59-79, respirations 14-20, blood pressure 120 to 138 over 49 to 64.General: Chronically ill appearing, in no acute distress. Cardiovascular: Irregularly irregular. No significant murmurs, rubs, or gallops. Pulmonary: Clear to auscultation= bilaterally. Abdomen: Soft, nontender, nondistended. Positive bowel sounds. Extremities: Moves all extremities well. No significant clubbing, cyanosis, or edema. Dermatologic: Evaluation reveals no evidence of rash. LABORATORY DATA: None. ASSESSMENT AND PLAN: 1. Pancytopenia-as described on previous notes, this likely was chemotherapy associated. Patient was treated supportively. At present time, patient's counts are acceptable. 2. Clostridium difficile colitis-unfortunately, patient failed Flagyl therapy. She has been converted to vancomycin and Questran. As described above, within the last 24 hours, she has experienced some solidification of her stools. We will continue to follow this closely. As this continues to improve, I anticipate discharge home in the near future. 3. Anticoagulation-full dose Xarelto has been held. She is being treated with prophylactic doses. At this point, the risk of full dose outweighs the benefits. 4. Hypokalemia-patient is being treated with potassium supplementation. We will continue this. We will check a potassium level in the morning. 5. Hypomagnesemia-the patient has been treated with replacement. We will recheck this in the morning as well. 6. Profound weakness-the patient is slowly improving. She is being treated with physical therapy. We will continue to encourage p.o. intake. 7. Pancreatic cancer-patient's chemotherapy has been held secondary to her acute illness. We will plan to resume once her Clostridium difficile colitis has resolved. 8. Atrial fibrillation with slow ventricular response/paroxysmal ventricular tachycardia - each of these episodes have been asymptomatic and nonsustained. I appreciate Dr. Newby's consultation. At present time, we will follow clinically. 9. Disposition-at this point, patient continues to require retirement care in a hospital setting. We will plan discharge home once appropriate.
[2016-11-13] MEDS: NS 1,000 ML IV SCH (15:49)
[2016-11-13] MEDS: XARELTO PO SCH (16:40)
[2016-11-13] MEDS: MARINOL PO SCH (21:57)
[2016-11-13] MEDS: INDERAL LA PO SCH (21:58)
[2016-11-13] MEDS: LUMIGAN 0.01% OPH SOLUTION BOTH EYES SCH (21:59)
[2016-11-14] MEDS: VANCOCIN PO SCH ×4 (05:17→21:21)
[2016-11-14 06:44] LABS: BASO% 0.2 % (0.0-0.8); EOS# 0.02 X1000 (0.0-0.7); EOS% 0.2 % (0.0-10.0); HEMATOCRIT 32.2 % (37.0-47.0); HEMOGLOBIN 10.9 g/dL (12.0-16.0); IMM GRAN# 0.16 X1000 (0.0-0.04); IMM GRAN% 1.6 % (0.0-0.5); LYMPH# 1.02 X1000 (1.2-3.4); LYMPH% 10.3 % (20.5-51.1); MANUAL DIFF NEEDED? NO; MCH 32.6 PG (27-31); MCHC 33.9 g/dL (33-37); MCV 96.4 FL (81-99); MONO# 0.95 X1000 (0.11-0.59); MONO% 9.6 % (1.7-9.3); MPV 9.7 FL (7.4-10.4); NEUT% 78.1 % (42.2-75.2); PLT 285 X1000 (130-400); RBC 3.34 XMIL (4.2-5.4)
[2016-11-14 07:17] LABS: AGAP 12; ALBUMIN 1.9 g/dL (3.5-5.0); ALKALINE PHOSPHATASE 196 U/L (32-104); BUN 5 mg/dL (8-22); CALCIUM 8.4 mg/dL (8.8-10.2); CHLORIDE 108 mmol/L (98-107); COSMO 273; GOT 26 U/L (10-30); GPT 7 U/L (10-36); MAGNESIUM 1.8 mg/dL (1.5-2.7); POTASSIUM 3.8 mmol/L (3.5-5.1); SODIUM 138 mmol/L (136-145); TCO2 18 mmol/L (25-35); TOTAL BILIRUBIN 0.97 mg/dL (0.20-1.00); TOTAL PROTEIN 4.8 g/dL (6.3-8.3)
[2016-11-14] MEDS: PAXIL PO SCH ×2 (11:08→21:21)
[2016-11-14] MEDS: CULTURELLE PO SCH (11:08)
[2016-11-14] MEDS: QUESTRAN LIGHT PO SCH ×2 (11:08→21:23)
[2016-11-14] MEDS: KLONOPIN PO SCH ×2 (11:08→21:21)
[2016-11-14] MEDS: LANOXIN PO SCH (11:08)
[2016-11-14] MEDS: COSOPT OPHTH SOLN BOTH EYES SCH ×2 (11:09→21:22)
[2016-11-14] MEDS: POTASSIUM CHLORIDE 20% LIQUID PO SCH (11:09)
--- NOTE | 2016-11-14 13:55 | PROGRESS NOTE ---
DATE: 11/14/2016 SUBJECTIVE: Slight improvement. Some solid material in the stool. Decrease in stool frequency. Slight increase in p.o. intake as well. OBJECTIVE: Vital signs: Temperature is 97.9, heart rate 70, respirations 15, blood pressure 120/60. General: Ill and emaciated but in no acute distress. Heart: Irregularly irregular. Lungs are clear. Abdomen is benign. Extremities: Minimal edema. Neurologic: No neurological deficit. DIAGNOSTIC DATA: No labs done. IMPRESSION: 1. Pancytopenia. Chemotherapy is held. 2. Clostridium colitis. Slight improvement. We will continue to watch. If there is any problem, we will add Dificid. 3. Low dose anticoagulation. 4. Hyperkalemia. 5. Weakness. 6. Pancreatic cancer. Chemotherapy held. 7. Atrial fibrillation. PLAN: Continue the current management.
--- NOTE | 2016-11-14 14:55 | PROGRESS NOTE ---
DATE: 11/13/2016 SUBJECTIVE: No significant improvement. Still has diarrhea but does not have any nausea or vomiting. Very little p.o. intake. OBJECTIVE: Vital signs: Temperature 98.4 degrees, heart rate 70, respiration 18, blood pressure 120/90. General: Ill, emaciated, in no acute distress. Cardiovascular: Irregularly irregular. No gallop, murmur, or rub. Lungs: Clear. Abdomen: Soft, nontender. Bowel sounds present. Extremities: There is 1+ edema but no clubbing or cyanosis. Neurological: Intact. LABORATORY DATA: Potassium 3.3, creatinine 0.6. IMPRESSIONS AND PLAN: 1. Pancytopenia, chemotherapy related; resolving. 2. Clostridium difficile colitis. Still being treated with vancomycin and Questran. 3. Decrease in anticoagulation. On low-dose Xarelto. 4. Hypokalemia. 5. Profound weakness. 6. Poor nutrition. 7. Atrial fibrillation. 8. Pancreatic cancer. Chemotherapy is currently on hold.
[2016-11-14] MEDS: XARELTO PO SCH (18:04)
[2016-11-14] MEDS: PERCOCET-5 PO PRN ×2 (18:24→22:24)
[2016-11-14] MEDS: INDERAL LA PO SCH (21:19)
[2016-11-14] MEDS: MARINOL PO SCH (21:20)
[2016-11-14] MEDS: LUMIGAN 0.01% OPH SOLUTION BOTH EYES SCH (21:23)
--- NOTE | 2016-11-14 22:30 | PROGRESS NOTE ---
DATE: 11/14/2016 SUBJECTIVE: Overall, patient continues to improve. Since starting the vancomycin orally, patient has had decreasing loose bowel movements. Over the course of the last 24 hours, this has decreased considerably. This morning, patient had a semi-solid stool. She denies fevers, chills, nausea, and vomiting. Her p.o. intake is slowly improving. Her energy level is slowly improving. OBJECTIVE: Vital signs: Temperature maximum 97.6 degrees, heart rate 63-79, respirations 16-20, blood pressure 120-153/47-68. General: Chronically ill appearing, in no acute distress. Cardiovascular: Irregularly irregular. No significant murmurs, rubs, or gallops. Pulmonary: Clear to auscultation bilaterally. Abdomen: Soft, nontender, nondistended. Positive bowel sounds. Extremities: Moves all extremities well. No significant clubbing, cyanosis, or edema. Dermatologic: Evaluation reveals no evidence of a rash. LABORATORY DATA: White blood cell count 9.88, hemoglobin 10.9, hematocrit 32.2, platelet counts 285,000. Sodium 138, potassium 3.8, chloride 108, bicarb 18, BUN 5, creatinine 0.5, glucose 96, calcium 8.4, total bilirubin 0.97, total protein 4.8, albumin 1.9. Alkaline phosphatase 196, AST 26, ALT 7. ASSESSMENT AND PLAN: 1. Pancytopenia-the patient has achieved resolution. We will remain aware. 2. Clostridium difficile colitis-I am very encouraged with patient's improvement with vancomycin therapy. She had a semi-solid stool today. Should her condition continue to improve, we will plan discharge home in the a.m. 3. Anticoagulation-because of patient's recent episode of significant pancytopenia associated with chemotherapy, Dr. Parrish and I discussed decreasing anticoagulation to a prophylactic dosage. At this point, I feel the risk of full-dose anticoagulation outweighs the benefits. 4. Hypokalemia-patient has achieved improvement with potassium supplementation. 5. Hypomagnesemia-patient has achieved improvement with replacement. 6. Profound weakness-patient's overall condition is very slowly, but steadily improving. We will continue physical therapy for now. At discharge, we will plan physical therapy at home. 7. Pancreatic cancer-patient's chemotherapy has been held. Once she resolves this condition, we will plan to resume chemotherapeutic intervention. 8. Atrial fibrillation with slow ventricular response/paroxysmal ventricular tachycardia-I appreciate Dr. Newby's consultation. At this point, no further intervention or recommendations have been made. 9. Disposition-at this point, patient continues to require [facility] care in a hospital setting. We will plan discharge home in the a.m. should her condition to improve.
[2016-11-15] MEDS: VANCOCIN PO SCH ×2 (04:51→10:39)
[2016-11-15 07:49] VITALS: BP 145/68
[2016-11-15] MEDS: PERCOCET-5 PO PRN (10:12)
[2016-11-15] MEDS: KLONOPIN PO SCH (10:37)
[2016-11-15] MEDS: LANOXIN PO SCH (10:38)
[2016-11-15] MEDS: POTASSIUM CHLORIDE 20% LIQUID PO SCH (10:38)
[2016-11-15] MEDS: PAXIL PO SCH (10:39)
[2016-11-15] MEDS: CULTURELLE PO SCH (10:39)
[2016-11-15] MEDS: COSOPT OPHTH SOLN BOTH EYES SCH (10:39)
[2016-11-15] MEDS: QUESTRAN LIGHT PO SCH (10:39)
--- NOTE | 2016-11-15 12:50 | PROGRESS NOTE ---
DATE: 11/15/2016 SUBJECTIVE: The patient states she is feeling much better. She is wanting to go home. Dr. Hobson has given discharge orders if okay with Dr. Kumar. Patient states her diarrhea has improved. She had a semi-solid stool today. Abdominal pain and cramping has improved. Her daughters is at the bedside. OBJECTIVE: Vital Signs: Temperature 97.3 degrees, pulse 81, respirations 20, blood pressure 145/68. General Appearance: Generally, the patient is awake and alert. Oriented to person, place, and time. Respiratory: Lung sounds essentially clear. Cardiovascular: Irregular rate. Abdomen: Soft, nontender, nondistended. Positive bowel sounds. LABORATORY: 11/14/2016 hematology WBC 9.88, hemoglobin 10.9, hematocrit 32.2. MCV 96.4. Chemistry: Sodium 138, potassium 3.8, chloride 108, CO2 18. BUN 5, creatinine 0.5, glucose 96. Total bilirubin 0.97. AST 26, ALT 7, alkaline phosphatase 196. ASSESSMENT AND PLAN: 1. Pancytopenia, which has resolved. 2. Clostridium difficile colitis, improving with vancomycin therapy. She will be given 2 weeks of therapy after discharge. 3. Anticoagulation following with Dr. Hobson and Dr. Parrish. 4. Weakness, improves with physical therapy. There is a plan to have physical therapy at home once discharged. 5. Pancreatic cancer. Her chemotherapy has been held. She will follow up with Dr. Parrish after discharge. 6. Atrial fibrillation. He has had some episodes of slowed ventricular response versus ventricular tachycardia while in the hospital and had been seen by Dr. Newby. 7. As far as gastrointestinal, it is okay for her to be discharged and continue antibiotics, along with using Questran as needed. Follow up in the office with Dr. Kumar in 2-3 weeks after discharge. Instructed the patient and daughter to call us with any problems before then. Dictated by LEEANNA Jimenez for Marcos Kumar MD
[2016-11-15] MEDS ORDERED: HEPARIN ONE (13:17)
--- NOTE | 2016-11-16 13:48 | DISCHARGE SUMMARY ---
ADMISSION DATE: 11/02/2016 DISCHARGE DATE: 11/15/2016 ADMISSION DIAGNOSES: 1. Shortness of breath. 2. Anemia. DISCHARGE DIAGNOSES: 1. Pancytopenia, resolved. 2. Clostridium difficile colitis. 3. Anticoagulation, present on arrival. 4. Hypokalemia, resolved. 5. Hypomagnesemia, resolved. 6. Profound weakness, improving. 7. Pancreatic cancer, present on arrival. 8. Atrial fibrillation with slow ventricular response/paroxysmal ventricular tachycardia, stabilized. CONSULTATIONS: 1. Dr. Kumar with Gastroenterology was consulted for further evaluation and management of Clostridium difficile colitis. 2. Dr. Kasuhal Parrish with Hematology/Oncology was consulted for further evaluation and management of pancreatic cancer. PROCEDURES: None. HISTORY AND PHYSICAL EXAMINATION: See admit note. PHYSICAL EXAMINATION PRIOR TO DISCHARGE: Vital Signs: Temperature 97.6, heart rate 70, respirations 20, blood pressure is 145/68. General: Chronically ill appearing, in no acute distress. Cardiovascular: Irregularly irregular. No significant murmurs, rubs, or gallops. Pulmonary: Clear to auscultation anteriorly. Abdomen: Soft, nontender, nondistended. Positive bowel sounds. Extremities: Moves all extremities well. No significant clubbing, cyanosis, or edema. Dermatologic: Evaluation reveals no evidence for rash. LABORATORY DATA: Prior to discharge: None. HOSPITAL COURSE: The patient was admitted as per history and physical examination. Hospital course per condition is as follows: 1. Pancytopenia-upon admission, patient was noted to have a considerable pancytopenia. The patient was treated with transfusions of packed red blood cells and platelets. The patient was placed on reverse isolation. With time, patient's overall condition improved. I suspect patient's pancytopenia was simply secondary to an underlying bone marrow pathology in the setting of chemotherapy. At time of discharge, counts were acceptable. 2. Clostridium difficile colitis. The patient was diagnosed upon admission. Unfortunately, patient did not achieve significant improvement with Flagyl. Ultimately, the patient was converted to vancomycin therapy. Since being on vancomycin and Questran, patient's overall condition has improved. We will follow this closely as an outpatient. 3. Anticoagulation-patient is being treated with Xarelto therapy secondary to underlying atrial fibrillation. The patient was being treated with full dose, however, while hospitalized in the setting of the anemia, it was felt a decreased dose was most appropriate. Patient was decreased to 2 mg of Xarelto nightly. This will continue to be followed as an outpatient. 4. Hypokalemia-while hospitalized, the patient was noted to be hypokalemic. With treatment of her underlying diarrhea, patient has achieved improvement. 5. Hypomagnesemia-the patient has achieved improvement while hospitalized. 6. Profound weakness-patient's overall strength is very slowly improving. We will encourage activity. 7. Pancreatic cancer-patient is followed by Dr. Parrish. At this point, chemotherapeutic intervention has been placed on hold secondary to Clostridium difficile colitis. We will plan to resume therapy once the C. difficile colitis has resolved. 8. Atrial fibrillation with a slow ventricular response/paroxysmal ventricular tachycardia. While hospitalized, patient experienced a mild arrhythmia as described above. Each of these were transient. At this point, no further intervention has been recommended by Cardiology. We will remain aware. DISCHARGE CONDITION: Good, stable. DISPOSITION: Discharged home. MEDICATIONS: 1. Questran Light, 1 packet twice daily. 2. Ipratropium nasal spray 2 sprays each nostril 3 times daily as needed. 3. Lactobacillus 1 tablet daily. 4. Calmoseptine ointment, apply topically as needed. 5. Conrath 5/325 every 4 hours as needed. 6. Xarelto 10 mg with supper. 7. Vancomycin 125 mg every 6 hours for 2 weeks. 8. Acetaminophen 650 mg every 4 hours as needed. 9. Lumigan eyedrops at bedtime. 10. Clonazepam 0.5 mg twice daily. 11. Digoxin 125 mcg daily. 12. Cosopt eye drops 1 drop both eyes twice daily. 13. Marinol 2.5 mg at bedtime. 14. Zofran 4 mg every 6 hours as needed. 15. Paroxetine 10 mg twice daily. 16. Pantoprazole 160 mg at bedtime. FOLLOWUP: The patient is to follow-up with me as arranged. Patient to follow-up with Dr. Parrish once the Clostridium difficile colitis resolves.
== END 2016-11-15 13:27 | disposition home health service (06) | DRG 371 ==
LOC: ED 14:05 → EDIPHOLD 16:59 → 3N 22:29
PROVIDERS: ADMIT Internal Medicine; ATTEND Internal Medicine
PROC: 30233R1 Transfusion of Nonautologous Platelets into Peripheral Vein, Percutaneous Approach (ICD-10-PCS; principal; 2016-11-02)
PROC: 30233N1 Transfusion of Nonautologous Red Blood Cells into Peripheral Vein, Percutaneous Approach (ICD-10-PCS; 2016-11-02)
DX: A04.7 Enterocolitis due to Clostridium difficile (principal); D61.810 Antineoplastic chemotherapy induced pancytopenia; I47.2 Ventricular tachycardia; R64 Cachexia; I48.2 Chronic atrial fibrillation; R00.1 Bradycardia, unspecified; C25.9 Malignant neoplasm of pancreas, unspecified; I45.89 Other specified conduction disorders; E83.42 Hypomagnesemia; E11.9 Type 2 diabetes mellitus without complications; L57.0 Actinic keratosis; F41.9 Anxiety disorder, unspecified; J45.909 Unspecified asthma, uncomplicated; I10 Essential (primary) hypertension; E78.1 Pure hyperglyceridemia; H40.9 Unspecified glaucoma; G47.33 Obstructive sleep apnea (adult) (pediatric); H02.403 Unspecified ptosis of bilateral eyelids; Z96.611 Presence of right artificial shoulder joint; E87.6 Hypokalemia; Z68.27 Body mass index [BMI] 27.0-27.9, adult; Z90.5 Acquired absence of kidney; Z85.3 Personal history of malignant neoplasm of breast; Z79.01 Long term (current) use of anticoagulants; Z85.42 Personal history of malignant neoplasm of other parts of uterus; Z79.899 Other long term (current) drug therapy; Z87.891 Personal history of nicotine dependence; Z80.1 Family history of malignant neoplasm of trachea, bronchus and lung; Z82.49 Family history of ischemic heart disease and other diseases of the circulatory system; Z83.3 Family history of diabetes mellitus; Z87.442 Personal history of urinary calculi
CPT/HCPCS: 36430; 71010; 80048; 80053; 80162; 82270; 82948; 83735; 85014; 85018; 85025; 85610; 85730; 86850; 86900; 86901; 86920; 87045; 87046; 87324; 89055; 93005; 93010; 94761; 94799; J3475; J3480; J7030; J7040; P9016; P9035; 97116-GP; 97530-GP

== ENCOUNTER 2016-11-27 07:27 | Inpatient (IN) ==
--- NOTE | 2016-11-27 08:53 | Diag Imaging Result Document ---
PROCEDURE NAME: PELVIS - 11/27/2016 PELVIS: COMPARISON: None. FINDINGS: There is an impacted left subcapital hip fracture. There are extensive degenerative changes of the spine and pelvis. No dislocation. IMPRESSION: Subcapital left hip fracture.
[2016-11-27] MEDS ORDERED: NS 500 ML IV ONE (09:15)
--- NOTE | 2016-11-27 09:20 | PROVIDER DOCUMENTATION ---
HPI-Musculoskeletal Pain/Inj - GENERAL Chief Complaint: Fall Stated Complaint: Fall/hip pain Time Seen by Provider: 11/27/16 08:04 Source: patient, family - HX OF PRESENT ILLNESS-MUSKULOSKELTAL Nature of Presenting Problem: 76 year old female presents to the ER following a fall at home. Pt is a cancer pt who is receiving chemo and radiation tx currently. Pt states she was being assisted by her son to the restroom when she fell and struck the back of her head on the tub. Pt denies LOC, headache and denies N/V. Pt does complain of left sided hip pain on movement. Onset/Duration: just prior to arrival Timing: still present - FALL INJURY Location of Pain/Injury: reports: pelvis (left) Reason for Fall: reports: tripped Loss of Consciousness: no loss of consciousness - TRUNK INJURY Location of Injury(s)/Pain: reports: pelvis (left) - HIP/PELVIS PAIN/INJURY Hip Pain Location: reports: hip (L) Review of Systems - Adult - REVIEW OF SYSTEMS - ADULT Constitutional: denies: chills, fever Musculoskeletal: reports: joint pain (left hip) Past History - Adult - PAST MEDICAL HISTORY-ADULT Review of Records: reports: Nursing Assessment Review, Medications Reviewed Major Childhood Illnesses: reports: denies history Cardiovascular: reports: A-Fib, HTN Gastrointestinal: reports: cancer (pancreatic) Genitourinary: reports: other (one kidney) Endocrine/Immune: reports: Diabetes - PRIOR SURGERIES/PROCEDURES Surgical/Procedure History: reports: hysterectomy, orthopedic (extremity), other (one kidney) - IMMUNIZATION STATUS Childhood Immunizations: See Nurse Assessment Flu Vaccine: See Nurse Assessment - FAMILY HISTORY Family History: reviewed, not pertinent Physical Exam-Injury Related - Physical Exam-Injury Related General Appearance: alert, mild distress Eyes: PERRL/EOMI, pink conjunctivae Head, Ears, Nose, Mouth & Throat: normocephalic/atraumatic. negative: moist mucous membranes Neck: supple, normal inspection Respiratory: lungs clear, normal breath sounds Cardiovascular: normal peripheral pulses, regular rate, rhythm Abdominal Exam: normal bowel sounds, soft Back Exam: no CVA tenderness, no vertebral tenderness Extremity: tenderness (left leg pain) Integumentary: normal color, warm/dry Neurologic: grossly normal, no motor/sensory deficits Psych/Mental Status: normal mood/affect, normal thought content, normal thought process, oriented x 3 Progress - XRAY 1 XRAY Study: Pelvis Impression: Abnormal XRAY Interpretation: left pelvic fracture per radiologist - CT/MRI 1 CT Study: Cervical Spine, Head Impression: Normal CT Results: Per Radiologist 2 CT Study: Pelvis Impression: Abnormal CT Results: Left pelvic fracture per Radiologist - CONSULTS/PCP/HOSPITALIST Notification #1 *Consult/PCP/Hospitalist*: Spoke with Orthopedic, Dr. Vasquez Time Discussed: 11:31 Reason/Comments: Let Dr. Vasquez know pt would be admitted #2 Consult: Spoke with Dr. Proctor Time Discussed: 11:33 Reason/Comments: Spoke with Dr. Proctor regarding admission Consult Disposition: Admit Departure - Departure Time of Disposition Order: 13:00 DIAGNOSIS: Pelvic fracture Qualifiers: Encounter type: initial encounter Pelvic bone location: unspecified part of pelvis Fracture type: closed Fracture alignment: nondisplaced Qualified Code(s) : S32.9XXA - Fracture of unspecified parts of lumbosacral spine and pelvis, initial encounter for closed fracture Disposition: ADMITTED INPATIENT 09 Certified Medical Emergency: Emergent Condition: Stable Attestation - Scribe Verification/Attestation Scribe:: Becky Duran Acting as Scribe for:: Nik Lr Scribe documention review:: This chart was documented by a scribe and accurately reflects the service the provider performed and the decisions made by the provider.
[2016-11-27 10:07] LABS: BASO% 0.2 % (0.0-0.8); EOS# 0.02 X1000 (0.0-0.7); EOS% 0.5 % (0.0-10.0); HEMATOCRIT 31.5 % (37.0-47.0); HEMOGLOBIN 10.4 g/dL (12.0-16.0); LYMPH# 0.74 X1000 (1.2-3.4); LYMPH% 16.8 % (20.5-51.1); MANUAL DIFF NEEDED? NO; MCH 34.1 PG (27-31); MCV 103.3 FL (81-99); MONO# 0.32 X1000 (0.11-0.59); MONO% 7.3 % (1.7-9.3); MPV 12.5 FL (7.4-10.4); NEUT% 75.2 % (42.2-75.2); PLT 128 X1000 (130-400); RBC 3.05 XMIL (4.2-5.4)
--- NOTE | 2016-11-27 10:07 | Diag Imaging Result Document ---
PROCEDURE NAME: HEAD/C-SPINE W/O CONTRAST - 11/27/[address]: A CT dose reduction protocol was used. COMPARISON: 08/09/2016. FINDINGS: Stable small old right periventricular white matter infarction. No intracranial mass or hemorrhage. The skull is intact. The sinuses, mastoids, and middle ears are clear. IMPRESSION: No acute disease or change from prior. CT CERVICAL SPINE: A CT dose reduction protocol was used. COMPARISON: None. FINDINGS: Alignment is anatomic. No fracture or subluxation. There is severe multilevel facet degeneration. There is mild disk degeneration, most notably at C6-C7. IMPRESSION: Cervical spondylosis. No acute disease. [facility]
--- NOTE | 2016-11-27 10:10 | Diag Imaging Result Document ---
PROCEDURE NAME: PELVIS W/O CONTRAST - 11/27/2016 CT PELVIS: A CT dose reduction protocol was used. COMPARISON: 06/22/2016. FINDINGS: There is a 9 mm stone in the inferior pole of the left kidney, which was present previously. No stent. There is an impacted displaced subcapital left hip fracture. No dislocation. The femoral heads are very osteopenic bilaterally. There is actually cystic osteopenia of each femoral head. No other fractures. Moderate degenerative changes of the lower lumbar spine and pelvis. IMPRESSION: 1. Impacted subcapital left hip fracture. 2. Significant cystic osteopenia of the femoral heads. 3. Left renal stone, stable from prior. [facility]
[2016-11-27 10:16] LABS: AGAP 10; ALBUMIN 2.1 g/dL (3.5-5.0); ALKALINE PHOSPHATASE 224 U/L (32-104); BUN 6 mg/dL (8-22); CALCIUM 8.7 mg/dL (8.8-10.2); CHLORIDE 102 mmol/L (98-107); COSMO 272; GOT 42 U/L (10-30); GPT 17 U/L (10-36); POTASSIUM 3.7 mmol/L (3.5-5.1); SODIUM 138 mmol/L (136-145); TCO2 26 mmol/L (25-35); TOTAL BILIRUBIN 1.03 mg/dL (0.20-1.00); TOTAL PROTEIN 5.6 g/dL (6.3-8.3)
[2016-11-27] MEDS ORDERED: ZOFRAN ONE (10:29)
[2016-11-27] MEDS ORDERED: MORPHINE ONE (10:29)
[2016-11-27] MEDS ORDERED: ZOFRAN IV ONE (10:36)
[2016-11-27] MEDS ORDERED: MORPHINE IV ONE (10:36)
--- NOTE | 2016-11-27 10:47 | Diag Imaging Result Document ---
PROCEDURE NAME: FEMUR MIN 2 VIEWS LEFT - 11/27/2016 LEFT FEMUR, 4 VIEWS: COMPARISON: None. FINDINGS: There is a subcapital left hip fracture. The remainder of the femur is normal. IMPRESSION: Subcapital left hip fracture.
[2016-11-27] MEDS ORDERED: ZOFRAN IV PRN (11:53)
[2016-11-27] MEDS: NS 1,000 ML IV SCH ×2 (12:50→21:24)
[2016-11-27] MEDS ORDERED: AMBIEN PO PRN (13:21)
[2016-11-27] MEDS ORDERED: SALINE LOCK IV FLUID XX ONE (13:21)
[2016-11-27] MEDS ORDERED: ATROVENT 0.03% NASAL SPRAY NAS PRN (13:29)
[2016-11-27] MEDS ORDERED: ZOFRAN ODT PO PRN (13:29)
[2016-11-27] MEDS ORDERED: CALMOSEPTINE OINTMENT TOP PRN (13:29)
[2016-11-27] MEDS ORDERED: TYLENOL PO PRN (13:29)
[2016-11-27] MEDS ORDERED: VITAMIN D PO ONE (13:56)
[2016-11-27] MEDS: VANCOCIN PO SCH ×2 (14:45→21:21)
--- NOTE | 2016-11-27 16:04 | HISTORY AND PHYSICAL ---
CHIEF COMPLAINT: Tripped and fell at home, left hip pain. PRESENT ILLNESS: Ms. Eduardo is a 76-year-old female with a complicated past medical history who was evaluated in the emergency room after falling at home. She remembers going into the bathroom with her walker and while attempting to transfer to the commode she tripped on a throw rug. She was unable to get up. One of her children was in the home and called an ambulance and further evaluation here by Dr. Lr has revealed an impacted left subcapital femoral neck fracture. She did hit her head without loss of consciousness. A CT of the head has not shown any new abnormalities. Her recent medical history is remarkable for pancreatic cancer (adenocarcinoma) treated by Dr. Parrish with Abraxane and Gemzar. She was due for a chemotherapy treatment a couple weeks ago but feels it was delayed because of her low blood counts. She was also recently admitted for C. difficile colitis and has normal bowel movements now but has not yet completed her 14 days of vancomycin after discharge. I believe this would have been completed on 11/29. PAST MEDICAL HISTORY: Positive for solitary left kidney, history of breast cancer, type 2 diabetes mellitus, hypertension, dyslipidemia, glaucoma, chronic atrial fibrillation, obstructive sleep apnea. 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 MEDICATIONS: Clonazepam 0.5 mg half tablet twice a day. Digoxin 125 mcg daily. Inderal LA 160 mg at bedtime. Paroxetine 10 mg twice a day. Percocet 5/325 1 q.i.d. as needed. Xarelto 10 mg at bedtime. Marinol 2.5 mg at bedtime. Cosopt eyedrops 1 drop in each eye twice daily. Lumigan eyedrops at bedtime. ALLERGIES: She is allergic to codeine, Demerol, penicillin, Singulair and tramadol. SOCIAL HISTORY: She is a former smoker but stopped over 35 years ago. 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 FAMILY HISTORY: Father at age 86 with pneumonia and with a history of lung cancer. Mother also of pneumonia with a history of hypertension, diabetes and TIAs. REVIEW OF SYSTEMS: General: No fever, chills, night sweats, weight loss. HEENT Exam: Her vision and hearing are adequate without recent changes. Respiratory: No cough, shortness of breath, sputum production. Cardiovascular: Long-standing chronic atrial fibrillation with rate control and anticoagulation. She had an echocardiogram several years ago with biatrial enlargement and left ventricular ejection fraction of 55%. She has had some pedal edema since her recent hospitalization and IV fluids. GI: Appetite is adequate with no recent nausea or vomiting. Her diarrhea stopped over a week ago and she has had formed bowel movements daily since. No melena or bright red blood per rectum. She required multiple units of packed red blood cells during her recent admission because of severe anemia. : No dysuria but she has had some recently documented urinary tract infections and I have ordered a urinalysis. Musculoskeletal: Some generalized weakness since beginning the chemotherapy. She has chronic joint pains from her previous trauma and also arthritis. Neurologic: No headaches, dizzy spells, seizures or strokes. Psychological: She takes Paxil for mood improvement but has no history of memory or thought disorders. Endocrine: Positive for diabetes which has been relatively well controlled on diet alone. PHYSICAL EXAMINATION: VITAL SIGNS: See nurse's notes. 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 SKIN: Somewhat pale, but adequate turgor and I do not appreciate any rash. HEENT: No visible or palpable evidence of trauma. Pupils are equal, round, reactive to light. Sclerae anicteric but slightly pale. Nasopharynx and oropharynx were benign. NECK: Supple with no adenopathy or bruits. CARDIOVASCULAR: There is a nearly regular rhythm with rate of 90. No murmurs or gallops. LUNGS: Clear to auscultation and percussion. BREASTS: Not examined. ABDOMEN: Soft, nontender. Active bowel sounds. There is no guarding or rebound tenderness present. NEUROLOGIC: Cranial nerves 2-12 are intact. She moves all extremities on command. PSYCH: Mental status seems fairly normal. DATABASE: White blood count of 4400. Hemoglobin 10.4, hematocrit 31.5%, MCV is 103.3. Chemistry profile, BUN 6, creatinine 0.5, glucose is 77. Calcium 8.7, albumin 2.1, alkaline phosphatase 224. ASSESSMENT: 1. Fall with impacted left subcapital femoral neck fracture. 2. Chronic atrial fibrillation, on Xarelto. Her last dose was only 10 mg and was nearly 24 hours ago. I do not believe this would be any impediment to surgical intervention of her fracture tomorrow. 3. Type 2 diabetes mellitus controlled with diet. 4. Osteoporosis. 5. Solitary left kidney. 6. Pancreatic cancer with ongoing chemotherapy. TREATMENT PLAN: I have requested an orthopedic consult from Dr. Rahman. She is comfortable now after some pain medication and she has other medications for pain and nausea ordered. Will resume her home medications except for the Xarelto. Will obtain a urinalysis.
[2016-11-27 18:05] LABS: URINE SOURCE CATH
[2016-11-27 18:14] LABS: BILIRUBIN URINE NEGATIVE (NEGATIVE); BLOOD URINE MODERATE (NEGATIVE); COLOR ORANGE; GLUCOSE URINE NEGATIVE (NEGATIVE); LEUKOCYTES URINE LARGE (NEGATIVE); NITRITE URINE POSITIVE (NEGATIVE); PROTEIN URINE 50 mg/dL (NEGATIVE); SP GRAVITY URINE 1.014; TURBIDITY URINE TURBID (CLEAR); URINE MICRO REVIEW NEEDED? YES; UROBILINOGEN URINE NORMAL (NORMAL)
[2016-11-27 18:17] LABS: UR EPITHELIAL CELLS <10 /HPF (<10); URINE BACTERIA 4+ /HPF; URINE CULTURE NEEDED? YES; URINE RBC TNTC /HPF (<10); URINE WBC TNTC /HPF (<10)
[2016-11-27] MEDS: PAXIL PO SCH (21:20)
[2016-11-27] MEDS: INDERAL LA PO SCH (21:20)
[2016-11-27] MEDS: KLONOPIN PO SCH (21:21)
[2016-11-27] MEDS: LUMIGAN 0.01% OPH SOLUTION BOTH EYES SCH (21:21)
[2016-11-27] MEDS: MARINOL PO SCH (21:21)
[2016-11-27] MEDS: COSOPT OPHTH SOLN BOTH EYES SCH (21:21)
[2016-11-27] MEDS: LOVENOX SUBQ SCH (21:22)
[2016-11-27] MEDS: QUESTRAN LIGHT PO SCH (21:25)
[2016-11-28] MEDS: MORPHINE IV PRN ×4 (01:30→20:59)
[2016-11-28] MEDS: VANCOCIN PO SCH ×4 (03:17→21:00)
[2016-11-28] MEDS ORDERED: GENTAMICIN 80 MG/NS 50 ML IV ONE (08:42)
[2016-11-28] MEDS: QUESTRAN LIGHT PO SCH ×2 (08:57→21:00)
[2016-11-28] MEDS: COSOPT OPHTH SOLN BOTH EYES SCH ×2 (08:57→21:01)
[2016-11-28] MEDS: PAXIL PO SCH ×2 (08:58→21:00)
[2016-11-28] MEDS: CULTURELLE PO SCH (08:58)
[2016-11-28] MEDS: KLONOPIN PO SCH ×2 (08:58→20:59)
[2016-11-28] MEDS: LANOXIN PO SCH (08:59)
[2016-11-28] MEDS ORDERED: MACROBID PO SCH (09:00)
[2016-11-28] MEDS: NS 1,000 ML IV SCH (12:48)
[2016-11-28] MEDS: LUMIGAN 0.01% OPH SOLUTION BOTH EYES SCH (21:00)
[2016-11-28] MEDS: INDERAL LA PO SCH (21:00)
[2016-11-28] MEDS: MARINOL PO SCH (21:00)
[2016-11-28] MEDS: LOVENOX SUBQ SCH (21:14)
[2016-11-29] MEDS: VANCOCIN PO SCH ×5 (02:41→21:05)
[2016-11-29] MEDS: COSOPT OPHTH SOLN BOTH EYES SCH ×2 (09:04→21:06)
[2016-11-29] MEDS: QUESTRAN LIGHT PO SCH ×2 (09:05→21:03)
[2016-11-29] MEDS ORDERED: KEFZOL 1 GM/D5W 50 ML ONE (12:25)
[2016-11-29] MEDS ORDERED: CLAVE SECONDARY SET 11953 ONE ×2 (12:25→12:34)
[2016-11-29] MEDS ORDERED: VERSED ONE (12:26)
[2016-11-29] MEDS ORDERED: DURAMORPH ONE (12:32)
[2016-11-29] MEDS ORDERED: TORADOL ONE (12:32)
[2016-11-29] MEDS ORDERED: SODIUM CHLORIDE 0.9% ONE (12:32)
[2016-11-29] MEDS ORDERED: MARCAINE 0.25% PF/EPI 1:200,000 ONE (12:32)
[2016-11-29] MEDS ORDERED: NEOSPORIN G.U. IRRIGANT ONE (12:32)
[2016-11-29] MEDS ORDERED: EXPAREL 1.3% ONE (12:33)
[2016-11-29] MEDS ORDERED: CYKLOKAPRON 1,000 MG/NS 100 ML ONE (12:34)
[2016-11-29] MEDS ORDERED: FENTANYL ONE (14:39)
--- NOTE | 2016-11-29 14:41 | CONSULTATION ---
DATE OF CONSULTATION: 11/28/2016 CHIEF COMPLAINT: Left hip pain. HISTORY: The patient is a 76-year-old female with a complicated medical history which includes history of pancreatic cancer, currently undergoing chemotherapy, history of breast cancer, now on Xarelto due to her cancer treatment and history of atrial fibrillation. She sustained a fall while going to the bathroom and trying to transfer to the commode and tripped on the way on a throw rug. She had an intense amount of pain in her left hip and presented to [facility]. X-rays were done which showed a left femoral neck fracture. Orthopedics was asked to see her in consultation in regards to this. After discussion with the patient, she claims the pain is in her left hip without any radicular symptoms. She also claims to have taken Xarelto on Tuesday night before presenting to the hospital. She is currently undergoing chemotherapy for her adenocarcinoma of the pancreas and also has a history of recent C. difficile that she is on oral vancomycin for but has not had a loose stool in the last 1-2 weeks. No other complaints. PAST MEDICAL HISTORY: Solitary left kidney, history of breast cancer, type 2 diabetes, hypertension, dyslipidemia, glaucoma, chronic atrial fibrillation on anticoagulation, and obstructive sleep apnea. 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 MEDICATIONS: Please see the chart for her home medications. It includes Percocet 5 and Xarelto 10 mg at bedtime. ALLERGIES: Codeine, Demerol, penicillin, Singulair, and tramadol. SOCIAL HISTORY: She is a former smoker but stopped 35 years ago. 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 REVIEW OF SYSTEMS: A 14-point review of systems, which was obtained, was negative except for as above. PHYSICAL EXAMINATION: General: She is alert and oriented and pleasant x3 in no acute distress. HEENT: Pupils are equal, round, reactive to light and accommodation. Extraocular movements are intact. Head is normocephalic. Neck: Trachea is midline. Supple. Cardiovascular: There is a brisk capillary refill in the peripheral extremities. Lungs: Normal aeration is noted. Abdomen: Soft and nontender. Neurologic: Cranial nerves II through XII are grossly intact. There is no focal deficit. The patient is intact distally in all distal dermatomal patterns. Musculoskeletal examination of the left lower extremity shows intense pain with log roll. Gross motor and sensory intact in bilateral lower extremities. No open wounds are noted. LABORATORY DATA: Laboratory values were reviewed which show hemoglobin 10.4, creatinine 0.5, white blood cell count 4400. RADIOLOGY: X-rays of the left hip show an impacted subcapital hip fracture. CT scan was also reviewed. It does show slight displacement of the femoral neck fracture. ASSESSMENT: 1. A 76-year-old female with long medical history status post fall with left femoral neck fracture, displaced. 2. History of chronic atrial fibrillation, on Xarelto. 3. Type 2 diabetes. 4. Undergoing recent chemotherapy for pancreatic cancer. 5. History of recent Clostridium difficile treated with oral vancomycin. PLAN: I had a long discussion with the patient and her family in regards to her treatment options. I do believe a hemiarthroplasty is needed for her. I have discussed with her about this including the risks, benefits and complications associated with the procedure. However, due to her taking the Xarelto recently, I do believe that it is essential to wait 48 hours prior to proceeding with the procedure. can be placed. She should be n.p.o. the night before the surgery. Call if there are any questions or concerns.
[2016-11-29] MEDS ORDERED: ZOFRAN ONE (14:47)
[2016-11-29] MEDS ORDERED: ANESTHESIA PB SET 88 IN 5742 ONE (14:47)
[2016-11-29] MEDS ORDERED: LR 2,000 ML ONE (14:47)
[2016-11-29] MEDS ORDERED: EXTENSION SET 32 IN 4522 ONE (14:48)
[2016-11-29] MEDS ORDERED: DECADRON ONE (14:48)
[2016-11-29] MEDS ORDERED: NS 1,000 ML ONE (14:49)
[2016-11-29] MEDS: CULTURELLE PO SCH (15:24)
[2016-11-29] MEDS: KLONOPIN PO SCH ×2 (15:24→21:04)
[2016-11-29] MEDS: PAXIL PO SCH ×2 (15:24→21:05)
[2016-11-29] MEDS: LANOXIN PO SCH (15:33)
[2016-11-29] MEDS ORDERED: MORPHINE IV PRN (15:45)
[2016-11-29] MEDS ORDERED: ZOFRAN IV PRN (15:45)
[2016-11-29] MEDS ORDERED: MILK OF MAGNESIA PO PRN (15:45)
[2016-11-29] MEDS ORDERED: OXY IR PO PRN (15:45)
[2016-11-29] MEDS: TYLENOL PO SCH ×2 (16:05→21:04)
[2016-11-29] MEDS: ULTRAM PO SCH ×2 (16:06→22:49)
[2016-11-29] MEDS: NS 1,000 ML IV SCH (16:25)
--- NOTE | 2016-11-29 18:05 | CONSULTATION ---
DATE OF CONSULTATION: 11/29/2016 REASON FOR CONSULT: Left hip fracture. HISTORY OF PRESENT ILLNESS: Ms. Eduardo is a 76-year-old white female who states that she was getting up in the morning to go to the bathroom and fell. This was TuesdayNovember 27. Said she began immediately having left femur pain and thought she had broken her femur. Went to the emergency room and the hip x-ray revealed a subcapital left hip fracture. We plan to perform a bipolar hemiarthroplasty on the left hip today. PAST MEDICAL HISTORY: Right nephrectomy. Breast cancer. Diabetes type 2. Hypertension. Glaucoma. Atrial fibrillation. Sleep apnea. PAST SURGICAL HISTORY: Nephrectomy. Mastectomy. Cholecystectomy. Cataract. Shoulder surgery. Left foot surgery. Hysterectomy with bilateral salpingo-oophorectomy. SOCIAL HISTORY: She is . She lives alone. She denies using tobacco, denies using alcohol. REVIEW OF SYSTEMS: Ten point review of system performed and all were negative except for what was mentioned in the history of present illness. PHYSICAL EXAMINATION: General: The patient is awake, she is in bed. She is articulate and able to answer questions appropriately. HEENT: Head is normocephalic, atraumatic. Pupils equal, round, reactive to light. Nares patent. Throat without exudate. Cardiac: S1, S2, a bit irregular. No murmur, rub or gallop noted. Lungs: Clear to auscultation bilaterally in all lung workman. Abdomen: Soft, nontender, nondistended. Bowel sounds present in all quadrants. Genitourinary: Not examined. Musculoskeletal: The patient has pain with palpation of the left hip as well as passive range of motion of that left hip. Distal to that she has 3+ pitting edema bilaterally in her lower legs. Pedal pulses are 2+. She has brisk capillary refill. Neurologic: Intact. ASSESSMENT: Left subcapital hip fracture. PLAN: Left bipolar hemiarthroplasty. The risks, benefits, and alternatives of the surgery were discussed with the patient, including risk of anesthesia, bleeding, damage to blood vessels, nerves, tendons, ligaments, and other imponderables were discussed. The patient agrees to proceed with the surgery at this time. Dictated by LEEANNA Blanc for Forest Sims MD
[2016-11-29] MEDS ORDERED: CYKLOKAPRON 1,000 MG in NS 100 ML IV ONE (19:17)
--- NOTE | 2016-11-29 20:21 | OPERATIVE NOTE ---
PROCEDURE DATE: 11/29/2016 PREOPERATIVE DIAGNOSIS: Left displaced femoral neck fracture. POSTOPERATIVE DIAGNOSIS: Left displaced femoral neck fracture. PROCEDURE PERFORMED: Left bipolar hemiarthroplasty using a DePuy Sargent size 5 stem with a +5, 28 mm head and a 48 mm bipolar head. ANESTHESIA: General. SURGEON: Forest Sims MD. SEASONAL TAX PREPARER: LEEANNA Duque 2ND SEASONAL TAX PREPARER: Alisha. COMPLICATIONS: None. BLOOD LOSS: Minimal. DESCRIPTION OF PROCEDURE: The patient was brought to the operative suite and placed in supine position. After satisfactory administration of general anesthesia, patient placed in right lateral decubitus position with the left hip up. The left hip was then prepped and draped in the usual sterile fashion. Using the usual posterior approach to the hip, we dissected sharply through the skin and subcutaneous tissue, down to the gluteus fascia. The gluteus fascia was incised and dissected bluntly down to the piriformis tendon. Piriformis tendon was tagged and identified, then an L-capsulotomy was performed, exposing the femoral neck. A femoral neck cut was made with the oscillating saw. Femoral head was removed with the power corkscrew. The femoral head was measured at 48 mm. A 48 mm trial was found to be an excellent fit. Attention was then directed to the femur. A [employer] cutter broach was used to enter the canal. Then the T- handle reamer, lateralizing reamer, and the canal was serially broached to a size 5 and then a calcar planer was used. The size 5 high offset, +5, 48 mm bipolar was trialed and found be excellent stability, leg length and soft tissue balancing. The trial was removed. The definitive stem was locked onto the femur. Once it was well seated, the Fernandes taper was cleaned and the bipolar with the +5, 28 mm head and the 48 mm bipolar was locked onto the Fernandes taper. Then the hip was reduced. It was again found to be stable with excellent soft tissue balancing. The short external rotators and the capsule were repaired to the posterior greater trochanter through drill holes, then the superior limb of the capsule an L-capsulotomy was repaired with interrupted FiberWire sutures. The hip was copiously infiltrated with Exparel,including the anterior capsule, posterior capsule, posterior muscular subcutaneous tissue. The gluteus fascia was then closed with 0 Vicryl. Skin edges approximated with 2-0 Vicryl. Skin was closed with skin marly and a sterile dressing was applied. The patient tolerated the procedure well without complication. At the end the procedure, all counts correct x2. The patient was transferred to the recovery room in stable condition.
[2016-11-29] MEDS: KEFZOL 1 GM/D5W 50 ML IV SCH (21:02)
[2016-11-29] MEDS: PERIDEX MT SCH (21:03)
[2016-11-29] MEDS: CELEBREX PO SCH (21:04)
[2016-11-29] MEDS: LOVENOX SUBQ SCH (21:05)
[2016-11-29] MEDS: MARINOL PO SCH (21:05)
[2016-11-29] MEDS: COLACE PO SCH (21:05)
[2016-11-29] MEDS: LYRICA PO SCH (21:05)
[2016-11-29] MEDS: LUMIGAN 0.01% OPH SOLUTION BOTH EYES SCH (21:06)
[2016-11-29] MEDS: INDERAL LA PO SCH (21:08)
[2016-11-30] MEDS: KEFZOL 1 GM/D5W 50 ML IV SCH (03:53)
[2016-11-30] MEDS: TYLENOL PO SCH ×3 (03:54→15:34)
[2016-11-30] MEDS: VANCOCIN PO SCH ×4 (03:54→22:46)
[2016-11-30] MEDS: ULTRAM PO SCH ×4 (03:54→23:04)
[2016-11-30] MEDS: NS 1,000 ML IV SCH (04:46)
[2016-11-30 05:48] LABS: HEMATOCRIT 26.9 % (37.0-47.0); HEMOGLOBIN 8.8 g/dL (12.0-16.0)
[2016-11-30 06:41] LABS: AGAP 10; BUN 11 mg/dL (8-22); CALCIUM 7.9 mg/dL (8.8-10.2); CHLORIDE 102 mmol/L (98-107); COSMO 273; POTASSIUM 3.6 mmol/L (3.5-5.1); SODIUM 136 mmol/L (136-145); TCO2 24 mmol/L (25-35)
--- NOTE | 2016-11-30 07:39 | PROGRESS NOTE ---
DATE: 11/30/2016 SUBJECTIVE: Yoli Eduardo is a 76-year-old female who is postoperative day 1 from a left bipolar hemiarthroplasty. She has no complaints as far as pain in her hip is concerned. OBJECTIVE: General: She is a well-developed, well-nourished female. She is alert and cooperative exam. Laboratory: Her hemoglobin is 8.8. Her hematocrit is 26.9. Vital signs: Stable. She is afebrile. Extremities: Her dressing is clean, dry, and intact without sign of any infection. Her leg is neurovascularly intact. ASSESSMENT: Satisfactory postoperative day 1 visit from a left bipolar hemiarthroplasty. PLAN: We will begin physical therapy with her today. She can be transferred either home or to rehab when she is stable medically and able to ambulate safely.
[2016-11-30] MEDS ORDERED: DECADRON IV ONE (09:00)
[2016-11-30] MEDS: COSOPT OPHTH SOLN BOTH EYES SCH ×2 (09:02→22:48)
[2016-11-30] MEDS: KLONOPIN PO SCH ×2 (09:02→22:43)
[2016-11-30] MEDS: PAXIL PO SCH ×2 (09:03→22:46)
[2016-11-30] MEDS: PEPCID PO SCH (09:03)
[2016-11-30] MEDS: CULTURELLE PO SCH (09:03)
[2016-11-30] MEDS: CELEBREX PO SCH ×2 (09:04→22:42)
[2016-11-30] MEDS: QUESTRAN LIGHT PO SCH ×2 (09:06→22:49)
[2016-11-30] MEDS: COLACE PO SCH ×2 (09:06→22:47)
[2016-11-30] MEDS: LYRICA PO SCH ×2 (09:06→22:43)
[2016-11-30] MEDS: LANOXIN PO SCH (09:06)
[2016-11-30] MEDS: PERIDEX MT SCH ×2 (09:07→22:43)
[2016-11-30] MEDS: LOVENOX SUBQ SCH (22:42)
[2016-11-30] MEDS: MARINOL PO SCH (22:46)
[2016-11-30] MEDS: LUMIGAN 0.01% OPH SOLUTION BOTH EYES SCH (22:48)
[2016-11-30] MEDS: INDERAL LA PO SCH (23:06)
[2016-12-01] MEDS: TYLENOL PO SCH ×5 (01:46→21:41)
[2016-12-01] MEDS: ULTRAM PO SCH ×4 (05:25→21:54)
[2016-12-01] MEDS: VANCOCIN PO SCH ×3 (05:46→16:00)
[2016-12-01 05:57] LABS: HEMOGLOBIN 8.6 g/dL (12.0-16.0)
--- NOTE | 2016-12-01 10:12 | PROGRESS NOTE ---
DATE: 12/01/2016 SUBJECTIVE: Yoli Eduardo is a 76-year-old female who is postoperative day 2 from a left bipolar hemiarthroplasty. She has no new complaints as far as pain in her hip is concerned. OBJECTIVE: General: She is a well developed, well nourished, female. She is alert and cooperative to exam. Vital Signs: Her vital signs are stable and she is afebrile. Extremities: Her dressing is clean, dry, and intact without signs of infection. Her leg is neurovascularly intact. Her calf is soft with no signs of deep venous thrombosis. She walked 30 feet yesterday. LABORATORY DATA: Her hemoglobin is 8.7 and her hematocrit is 26.5. ASSESSMENT: Satisfactory postoperative day 2 visit from a left bipolar hemiarthroplasty. PLAN: We will continue physical therapy with her. She can be transferred either to home or to rehab when she is stable medically and able to ambulate safely. Dictated by SCOTTY Streeter for Forest Sims MD
[2016-12-01] MEDS: PERIDEX MT SCH ×2 (11:28→21:43)
[2016-12-01] MEDS: CELEBREX PO SCH ×2 (11:29→21:43)
[2016-12-01] MEDS: CULTURELLE PO SCH (11:30)
[2016-12-01] MEDS: LANOXIN PO SCH (11:30)
[2016-12-01] MEDS: COSOPT OPHTH SOLN BOTH EYES SCH ×2 (11:30→21:53)
[2016-12-01] MEDS: LYRICA PO SCH ×2 (11:30→21:41)
[2016-12-01] MEDS: MACROBID PO SCH ×2 (11:31→21:41)
[2016-12-01] MEDS: KLONOPIN PO SCH ×2 (11:32→21:38)
[2016-12-01] MEDS: COLACE PO SCH ×2 (11:32→21:41)
[2016-12-01] MEDS: PAXIL PO SCH ×2 (11:32→21:43)
[2016-12-01] MEDS: PEPCID PO SCH (11:32)
[2016-12-01] MEDS: QUESTRAN LIGHT PO SCH ×2 (11:33→21:53)
--- NOTE | 2016-12-01 18:42 | PROGRESS NOTE ---
DATE: 12/01/2016 SUBJECTIVE: Patient's chart was reviewed. In summary, patient was admitted on 11/27/2016 with a left subcapsular femoral neck fracture. Patient was taken for surgical intervention by Dr. Sims on 11/29/2016. The patient tolerated this procedure well. Her postoperative course has largely been uneventful. The patient is working with physical therapy. Her p.o. intake is slowly improving. She denies fevers, chills, nausea, vomiting, shortness of breath, or chest discomfort. OBJECTIVE: Vital Signs: T-max 99.2, heart rate 50 to 62, respirations 14-18, blood pressure 101 to 159 over 43 to 52. General: Chronically ill appearing, in no acute distress. Cardiovascular: Irregularly irregular. No significant murmurs, rubs, or gallops. Pulmonary: Clear to auscultation bilaterally. Abdomen: Soft, nontender, nondistended. Positive bowel sounds. Extremities: Moves all extremities well. No significant clubbing, cyanosis, or edema. Dermatologic: Evaluation reveals no evidence of rash. LABORATORY DATA: Hemoglobin 8.6, hematocrit 26.0. ASSESSMENT AND PLAN: 1. Left hip fracture-patient is postoperative day #2. She is working with physical therapy. We will defer postoperative management to Dr. Sims with Orthopedic surgery. 2. Clostridium difficile colitis-the patient recently required prolonged hospitalization. For now, we will continue vancomycin therapy. 3. Urinary tract infection-patient's urinalysis revealed Klebsiella. We will initiate Macrobid therapy. We will remain aware of increasing risk of Clostridium difficile recurrence in the setting of antibiotic therapy. 4. Anticoagulation-the patient is currently being treated with enoxaparin therapy. We will plan to resume Xarelto once able. 5. Profound weakness. Patient is currently being treated with physical therapy. We will follow this. 6. Pancreatic cancer - Patient's chemotherapy has been held secondary to Clostridium difficile colitis. We will consult Dr. Parrish to determine when re-initiation of therapy is appropriate. Patient likely will require rehabilitation at time of discharge. 7. Atrial fibrillation-patient is currently being treated with rate control. We will reinitiate anticoagulation once able. DISPOSITION: At this point, patient continues to require assisted care in the hospital setting. We will plan to discharge to rehabilitation once appropriate.
--- NOTE | 2016-12-01 20:46 | CONSULTATION ---
DATE OF CONSULTATION: 12/01/2016 ADMITTING PHYSICIAN: Dr. Thiago Proctor REQUESTING PHYSICIAN: Dr. Thiago Proctor. We appreciate this consult. CHIEF COMPLAINT: Fractured hip. HISTORY OF PRESENT ILLNESS: Ms. Eduardo is a 76-year-old female, who is well known to us with a history of pancreatic cancer, currently being treated with Abraxane and Gemzar. The patient has had several hospitalizations recently with the most recent hospitalization secondary to Clostridium difficile colitis. The patient has been on p.o. vancomycin since that time and reports much improvement in her symptoms. However, the patient reports that at home she was attempting to transfer from her walker to the commode and tripped on a throw rug. She was unable to get up at that time and EMS was called. Upon presentation to [facility], imaging revealed an impacted left subcapital femoral neck fracture. Additionally, the patient reports that she did hit her head without loss of consciousness. CT of the head was negative for any acute abnormality. The patient is admitted with a consult for Orthopedics. PAST MEDICAL HISTORY: 1. Solitary left kidney. 2. Breast cancer. 3. Diabetes mellitus type 2. 4. Hypertension. 5. Dyslipidemia. 6. Glaucoma. 7. Chronic atrial fibrillation. 8. Obstructive sleep apnea. 9. Pancreatic cancer. 10. Recent Clostridium difficile colitis. PAST SURGICAL HISTORY: 1. 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 2. Left mastectomy status post breast cancer. 3. Cataract extraction. 4. Laparoscopic cholecystectomy. 5. Traumatic right shoulder and left ankle fractures in 2009. 6. Total abdominal hysterectomy with bilateral salpingo oophorectomy for uterine malignancy in 2003. SOCIAL HISTORY: The patient has a history of smoking, but has been quit over 35 years. She does not use alcohol or illicit drugs. FAMILY HISTORY: Significant for lung cancer in the patient's father. No other hematologic or oncologic problem. MEDICATIONS ON ADMISSION: 1. Clonazepam. 2. Digoxin. 3. Inderal LA. 4. Paroxetine. 5. Percocet. 6. Xarelto. 7. Marinol. 8. Cosopt. 9. Lumigan. ALLERGIES: Codeine. Demerol. Penicillin. Singulair. Tramadol. REVIEW OF SYSTEMS: A 14 point review of systems was obtained to include:Constitutional: Patient denies recent fever or weight loss. HEENT: She denies headaches. No change in vision or hearing loss. No sore throat. Pulmonary: She denies shortness of breath, cough or sputum production. CARDIOVASCULAR: No chest pain or palpitations. Gastrointestinal: No nausea, vomiting, or abdominal pain. She does report some minimal diarrhea. Dermatologic: No rashes, bruises or lesions. Neurologic: The patient denies any focal deficit. PHYSICAL EXAMINATION: Ms. Eduardo is a pleasant 76-year-old female, sitting up in a chair in no apparent distress.Vital Signs: Temperature is 99.2 degrees, blood pressure 131/49, heart rate 62, respirations 16, O2 saturation is 99% on room air. HEENT: Normocephalic, atraumatic. Mucous membranes are pale and somewhat dry. Sclerae is anicteric. Extraocular movements intact. Neck: Supple. Lungs: Clear to auscultation bilaterally. Chest expansion is equal bilaterally. CARDIOVASCULAR: S1, S2 is heard without murmur, rub or gallop. Abdomen: Soft, nondistended, nontender. Bowel sounds are positive in all quadrants. No rebound or guarding noted. Extremities: Without clubbing, cyanosis, or edema. Dermatologic: No rashes, bruises or lesions. Neurologic: The patient is awake, alert, and oriented x3. She has no focal deficit at this time. LABORATORY DATA: Hemoglobin is 8.6, hematocrit 26. Sodium 136, potassium 3.6, chloride 102, CO2 is 24, BUN 11, creatinine 0.7, glucose 137, calcium is 7.9. UA reveals positive urinary tract infection. ASSESSMENT AND PLAN: 1. Pancreatic cancer. Currently on Abraxane and Gemzar. Treatment is being held until acute illness improves. Currently the patient is scheduled for follow up in clinic next week. 2. Fall with fracture of the left femoral neck. Orthopedics are currently following. 3. Urinary tract infection. Currently on Macrobid. The patient does report improvement in symptoms. 4. Chronic atrial fibrillation. Currently on Xarelto. The patient denies any bleeding. 5. Recent Clostridium difficile colitis. The patient does continue on p.o. vancomycin at this time and is being followed by Dr. Flores of Infectious Disease. 6. We will follow along with you and make further recommendations pending outcomes. The above reflects the history, examination, assessment and plan of Dr. Parrish. Dictated by LEEANNA Corbett for Kaushal Parrish MD
[2016-12-01] MEDS: MARINOL PO SCH (21:41)
[2016-12-01] MEDS: INDERAL LA PO SCH (21:43)
[2016-12-01] MEDS: LOVENOX SUBQ SCH (21:43)
[2016-12-01] MEDS: LUMIGAN 0.01% OPH SOLUTION BOTH EYES SCH (21:53)
[2016-12-02] MEDS: VANCOCIN PO SCH ×5 (00:02→22:32)
[2016-12-02] MEDS: ULTRAM PO SCH ×4 (05:10→22:22)
[2016-12-02] MEDS: TYLENOL PO SCH ×4 (05:11→22:28)
[2016-12-02 06:15] LABS: BASO% 0.3 % (0.0-0.8); EOS# 0.02 X1000 (0.0-0.7); EOS% 0.5 % (0.0-10.0); HEMATOCRIT 23.7 % (37.0-47.0); HEMOGLOBIN 7.5 g/dL (12.0-16.0); LYMPH# 0.97 X1000 (1.2-3.4); LYMPH% 26.3 % (20.5-51.1); MANUAL DIFF NEEDED? NO; MCH 33.5 PG (27-31); MCHC 31.6 g/dL (33-37); MCV 105.8 FL (81-99); MONO# 0.28 X1000 (0.11-0.59); MONO% 7.6 % (1.7-9.3); MPV 12.2 FL (7.4-10.4); NEUT% 65.3 % (42.2-75.2); PLT 129 X1000 (130-400); RBC 2.24 XMIL (4.2-5.4)
[2016-12-02 06:37] LABS: AGAP 9; ALBUMIN 1.4 g/dL (3.5-5.0); ALKALINE PHOSPHATASE 165 U/L (32-104); BUN 13 mg/dL (8-22); CHLORIDE 113 mmol/L (98-107); COSMO 281; GOT 19 U/L (10-30); GPT 7 U/L (10-36); SODIUM 142 mmol/L (136-145); TCO2 20 mmol/L (25-35)
[2016-12-02 06:43] LABS: CALCIUM 6.5 mg/dL (8.8-10.2)
[2016-12-02] MEDS ORDERED: KLOR-CON PO ONE (07:37)
[2016-12-02] MEDS ORDERED: COLACE PO PRN (07:53)
[2016-12-02] MEDS: PEPCID PO SCH (09:26)
[2016-12-02] MEDS: MACROBID PO SCH ×2 (09:29→22:24)
[2016-12-02] MEDS: PAXIL PO SCH ×2 (09:30→22:22)
[2016-12-02] MEDS: CELEBREX PO SCH ×2 (09:30→22:21)
[2016-12-02] MEDS: CULTURELLE PO SCH (09:31)
[2016-12-02] MEDS: QUESTRAN LIGHT PO SCH ×2 (09:31→22:23)
[2016-12-02] MEDS: LANOXIN PO SCH (09:31)
[2016-12-02] MEDS: LYRICA PO SCH ×2 (09:34→22:25)
[2016-12-02] MEDS: COSOPT OPHTH SOLN BOTH EYES SCH ×2 (09:34→22:26)
[2016-12-02] MEDS: KLONOPIN PO SCH ×2 (09:34→22:22)
[2016-12-02] MEDS: PERIDEX MT SCH ×2 (09:40→22:23)
--- NOTE | 2016-12-02 09:53 | PROGRESS NOTE ---
DATE: 12/02/2016 SUBJECTIVE: Ms. Eduardo is a 76-year-old female who is postoperative day 3 from a left bipolar hemiarthroplasty. She has no new complaints as far as her hip is concerned. OBJECTIVE: General: She is a well developed, well-nourished female. She is alert and oriented, and cooperative with the examination. Vital Signs: Her vital signs are stable and she is afebrile. Extremities: Her wound is clean, dry, and intact without signs of infection. Her leg is neurovascularly intact. Her calf is soft. Yesterday, she walked 30 feet with PT. Laboratory Data: Her hemoglobin is 7.5 and her hematocrit is 23.7. ASSESSMENT: Satisfactory postoperative day 3 visit from a left bipolar hemiarthroplasty. PLAN: We will continue physical therapy with her. She can be transferred either home or to rehab when she is stable medically and able to ambulate safely. Dictated by SCOTTY Streeter for Les Huggins MD
[2016-12-02] MEDS ORDERED: NS 500 ML ONE (14:39)
[2016-12-02] MEDS: INDERAL LA PO SCH (22:22)
[2016-12-02] MEDS: MARINOL PO SCH (22:22)
[2016-12-02] MEDS: LOVENOX SUBQ SCH (22:25)
[2016-12-02] MEDS: LUMIGAN 0.01% OPH SOLUTION BOTH EYES SCH (22:26)
--- NOTE | 2016-12-02 22:37 | PROGRESS NOTE ---
DATE: 12/02/2016 SUBJECTIVE: The patient continues to slowly improve. Patient's p.o. intake is adequate. She continues to work with physical therapy. Her pain is reasonably controlled. She denies fevers, chills, nausea, vomiting, shortness of breath, or chest discomfort. OBJECTIVE: Vital signs: Temperature maximum 99.7, heart rate 56-69, respirations 14-22 and blood pressure 106-131/49-96. General: Chronically ill appearing, no acute distress. Cardiovascular: Irregularly irregular. No significant murmurs, rubs, or gallops. Pulmonary: Clear to auscultation bilaterally. Abdomen: Soft, nontender, nondistended. Positive bowel sounds. Extremities: Moves all extremities well. No significant clubbing, cyanosis, or edema. Dermatologic: Evaluation reveals no evidence of rash. LABORATORY DATA: White blood cell count 3.69, hemoglobin 7.5, hematocrit 23.7, platelet count 129,000. Sodium 142, potassium 3, chloride 113, bicarb 20, BUN 13, creatinine 0.4, glucose 52, calcium 6.5, total bilirubin 0.40, total protein 4, albumin 1.4. Alkaline phosphatase 165, AST 19, AST 7. PLAN/ASSESSMENT: 1. Left hip fracture-patient is postoperative day #3. Her overall condition continues to improve. She is working with Physical Therapy. I anticipate discharge to rehabilitation tomorrow. 2. Clostridium difficile colitis-patient recently required a prolonged hospitalization secondary to persistent symptoms. She currently is being treated with vancomycin therapy. Her stools have normalized. For now, we will continue this. 3. Urinary tract infection-patient was started on Macrobid yesterday. We will follow this. 4. Anticoagulation-patient is currently being treated with enoxaparin therapy. We will plan to resume Xarelto once appropriate. 5. Profound weakness-we will continue physical therapy. 6. Pancreatic cancer-Patient's chemotherapy has been held secondary to Clostridium difficile colitis and hip fracture. We will plan to resume chemotherapy in the next several weeks. 7. Atrial fibrillation-patient is rate controlled. 8. Disposition-at this point, patient continues to require assisted care in a hospital setting. We will go and discharge to home once appropriate.
[2016-12-03] MEDS: ULTRAM PO SCH ×2 (05:08→09:16)
[2016-12-03] MEDS: VANCOCIN PO SCH ×2 (05:08→11:45)
[2016-12-03] MEDS: TYLENOL PO SCH ×2 (06:02→09:12)
[2016-12-03 07:02] LABS: AGAP 11; ALBUMIN 1.9 g/dL (3.5-5.0); ALKALINE PHOSPHATASE 252 U/L (32-104); BASO% 0.3 % (0.0-0.8); BUN 12 mg/dL (8-22); CALCIUM 7.9 mg/dL (8.8-10.2); CHLORIDE 104 mmol/L (98-107); COSMO 273; EOS% 2.6 % (0.0-10.0); GOT 28 U/L (10-30); GPT 11 U/L (10-36); HEMATOCRIT 29.3 % (37.0-47.0); HEMOGLOBIN 9.7 g/dL (12.0-16.0); LYMPH# 1.11 X1000 (1.2-3.4); LYMPH% 28.9 % (20.5-51.1); MANUAL DIFF NEEDED? NO; MCHC 33.1 g/dL (33-37); MCV 102.8 FL (81-99); MONO# 0.32 X1000 (0.11-0.59); MONO% 8.3 % (1.7-9.3); MPV 11.9 FL (7.4-10.4); NEUT% 59.9 % (42.2-75.2); PLT 139 X1000 (130-400); POTASSIUM 3.8 mmol/L (3.5-5.1); RBC 2.85 XMIL (4.2-5.4); SODIUM 138 mmol/L (136-145); TCO2 23 mmol/L (25-35); TOTAL BILIRUBIN 0.66 mg/dL (0.20-1.00); TOTAL PROTEIN 5.4 g/dL (6.3-8.3)
[2016-12-03] MEDS: MACROBID PO SCH (09:11)
[2016-12-03] MEDS: CULTURELLE PO SCH (09:11)
[2016-12-03] MEDS: PEPCID PO SCH (09:12)
[2016-12-03] MEDS: CELEBREX PO SCH (09:12)
[2016-12-03] MEDS: PAXIL PO SCH (09:12)
[2016-12-03] MEDS: QUESTRAN LIGHT PO SCH (09:13)
[2016-12-03] MEDS: PERIDEX MT SCH (09:13)
[2016-12-03] MEDS: LANOXIN PO SCH (09:14)
[2016-12-03] MEDS: LYRICA PO SCH (09:16)
[2016-12-03] MEDS: KLONOPIN PO SCH (09:16)
[2016-12-03] MEDS: COSOPT OPHTH SOLN BOTH EYES SCH (09:20)
[2016-12-03] MEDS ORDERED: HEPARIN ONE (11:32)
[2016-12-03 11:43] VITALS: BP 145/56
--- NOTE | 2016-12-03 12:15 | DISCHARGE SUMMARY ---
ADMISSION DATE: 11/27/2016 DISCHARGE DATE: 12/03/2016 ADMISSION DIAGNOSIS: Left hip pain. DISCHARGE DIAGNOSES: 1. Left hip fracture status post surgical intervention. 2. Clostridium difficile colitis, present on arrival, treated. 3. Urinary tract infection, treated. 4. Anticoagulation, present on arrival. 5. Profound weakness, improving. 6. Pancreatic cancer, present on arrival. 7. Atrial fibrillation, present on arrival. CONSULTATIONS: 1. Dr. Sims with Orthopedic Surgery was consulted for further evaluation and management of left displaced femoral neck fracture. 2. Dr. Parrish with Hematology/Oncology was consulted for further planning associated with pancreatic cancer. PROCEDURES: 1. A femoral x-ray was performed on 11/27/2016 which revealed a subcapital left hip fracture. 2. A hip and pelvic x-ray was performed on 11/27/2016 which also revealed a subcapital left hip fracture. 3. CT scan of the head was performed on 11/27/2016 which revealed no acute disease or changes from prior. 4. CT scan of the cervical spine was performed on 11/27/2016 which revealed cervical spondylosis, no acute disease. 5. A pelvic CT was performed on 11/27/2016 which revealed impacted subcapital left hip fracture. Significant cystic osteopenia of the femoral heads. Left renal stone, stable from prior. 6. A left bipolar hemiarthroplasty was performed on 11/29/2016. HISTORY AND PHYSICAL EXAMINATION: See admit note. PHYSICAL EXAMINATION PRIOR TO DISCHARGE: Vital signs: Temperature 98.4, heart rate 55, respirations 20, blood pressure 117/70. General: Chronically ill appearing, in no acute distress. Cardiovascular: Irregularly irregular, no significant murmurs, rubs, or gallops. Pulmonary: Clear to auscultation bilaterally. Abdomen: Soft, nontender, nondistended, positive bowel sounds. Extremities: Moves all extremities well, no significant clubbing, cyanosis, or edema. Dermatologic: Reveals no evidence of rash. LABORATORY DATA PRIOR TO DISCHARGE: White blood cell count 3.84, hemoglobin 9.7, hematocrit 29.3, platelet count is 139,000. Sodium 138, potassium 3.8, chloride 104, bicarb 23, BUN 12, creatinine 0.5, glucose 59, calcium 7.9. Total bilirubin 0.66, total protein 5.4, albumin 1.9, alkaline phosphatase 252, AST 28, ALT 11. HOSPITAL COURSE: The patient was admitted as per history and physical examination. Hospital course per condition is as follows: 1. Left hip fracture--Upon admission, the patient was noted to have excruciating left hip pain. Full evaluation was pursued as described above. Ultimately, the patient was diagnosed with a left hip fracture. Dr. Sims with Orthopedic Surgery was consulted. The patient was taken for surgical intervention on 11/29/2016. The patient tolerated this quite well. Postoperative course has been uncomplicated. She has tolerated physical therapy. The patient will be discharged to rehabilitation with physical therapy as directed by Dr. Sims. We will continue as-needed pain medication. Staple removal will be per Dr. Sims's recommendations. 2. Clostridium difficile colitis--The patient recently was admitted to the hospital with Clostridium difficile colitis. The patient has completed 2 weeks of therapy. She is no longer experiencing loose stools. We will provide 5 additional days of vancomycin at rehabilitation while she is being treated for her urinary tract infection. This will need to be followed closely upon discontinuing vancomycin therapy. 3. Urinary tract infection--While hospitalized, the patient was found to have a urinary tract infection with Klebsiella pneumoniae. The patient will be discharged on 5 additional days of Macrobid therapy. 4. Anticoagulation--While hospitalized, the patient was treated with enoxaparin. At time of discharge, we will transition patient back to Xarelto therapy which she was being treated with prior to hospitalization. We will follow this, as well. 5. Profound weakness--The patient did experience increasing weakness associated with her hip fracture. We will continue physical therapy as an outpatient. 6. Pancreatic cancer--The patient is currently being followed by Dr. Parrish. Her chemotherapy has been held while her Clostridium difficile colitis was treated. I anticipate, with improvement of patient's ambulation, chemotherapy will be reinitiated within the next couple of weeks. 7. Atrial fibrillation--The patient remained rate controlled throughout hospitalization. We will reinitiate Xarelto therapy as described above. DISCHARGE CONDITION: Stable. DISPOSITION: Discharge to rehabilitation. MEDICATIONS: 1. Clonazepam 0.5 mg twice daily. 2. Colace 100 mg twice daily as needed. 3. Marinol 2.5 mg at bedtime. 4. Famotidine 20 mg daily. 5. Milk of magnesia as needed. 6. Macrobid 100 mg twice daily for 5 days. 7. Percocet 5/325 q.4 h. as needed for pain. 8. Vancomycin 125 mg q.6 h. for the next 5 days. 9. Acetaminophen 650 mg q.6 h. as needed. 10. Lumigan eye drops 1 drop each eye at bedtime. 11. Questran Light 4 g twice daily. 12. Digoxin 125 mcg daily. 13. Cosopt eye drops 1 drop each eye twice daily. 14. Ipratropium nasal spray 2 sprays three times daily as needed. 15. Culturelle one tablet daily. 16. Calmoseptine ointment as needed. 17. Zofran ODT 4 mg q.6 h. as needed. 18. Paroxetine 10 mg twice daily. 19. Propranolol 160 mg at bedtime. 20. Xarelto 10 mg with supper. FOLLOWUP: The patient is to follow up with me after rehabilitation. The patient is to follow up with Dr. Sims as arranged. The patient is to have marly removed per Dr. Sims's recommendations.
--- NOTE | 2016-12-03 13:59 | Diag Imaging Result Document ---
PROCEDURE NAME: CHEST-PORTABLE - 12/03/2016 AP PORTABLE CHEST: TIME: 1320 hours FINDINGS: There is a Port-A-Cath on the right. There is no evidence of acute cardiac or pulmonary disease. The inspiration is less optimal than on 11/02/2016. IMPRESSION: No acute disease.
== END 2016-12-03 14:40 ==
LOC: EDBD → SUPCPDRO 07:27 → ED 07:27 → 4N 13:03
PROVIDERS: ADMIT Internal Medicine; ATTEND Internal Medicine